=== PATIENT | male | born 1970 | race African-American/Black ===

== ENCOUNTER 2016-04-14 10:45 | Inpatient (IN) | payer MEDICARE, OTHER ==
--- NOTE | ~2016-04-14 | DS ---
Unit #: [id number] #: [id number] Patient: GUSTABO BREWER [id number] [facility] [address] [place] [address] [id number] I MR#: [id number] NAME: GUSTABO BREWER. ROOM: P259 Age: 45 Sex: M Admission Date: 04/14/2016 : 1970 Discharge Date: 04/19/2016 Attending Physician: Lluvia Ruiz M.D. DISCHARGE SUMMARY IDENTIFYING DATA Mr. Brewer is a 45-year-old male, who is known to us from previous encounter and was self-referred to the hospital. DISCHARGE DIAGNOSES Psychiatric: Major depressive disorder, recurrent, moderate, with psychosis. Medical: Hypertension. Stressors: Moderate psychosocial stressors. HISTORY OF PRESENT ILLNESS Please see initial psychiatric evaluation for details. PAST PSYCHIATRIC HISTORY Please see initial psychiatric evaluation for details. PAST MEDICAL HISTORY Please see initial psychiatric evaluation for details. HOSPITAL COURSE The patient was admitted to the adult psychiatric unit at [facility] and was oriented to the hospital environment. Routine p.r.n. medications were initiated, and he was started back on his home medications and the medications were adjusted and he was closely monitored. He was taking the medications regularly and was able to show a fairly decent therapeutic response and as such, it was decided that he will be discharged home and will continue treatment on an outpatient basis. DISCHARGE MEDICATIONS None. DISCHARGE CONDITION Stable. PROGNOSIS Fair. Dictated by... Lluvia Ruiz M.D. IAA/leol TD: 05/27/2016 13:46 Unit #: [id number] #: [id number] Patient: GUSTABO BREWER JOB #: [id number] DISCHARGE SUMMARY Page 1 of 1 X Lluvia Ruiz MD X DISCHARGE SUMMARY
--- NOTE | ~2016-04-14 | HP ---
Unit #: [id number] #: [id number] Patient: GUSTABO ZAMUDIO [id number] [place] [address] [id number] MR#: [id number] NAME: GUSTABO ZAMUDIO. ROOM: P255 Age: 45 Sex: M Admission Date: 04/14/2016 : 1970 Attending Physician: Lluvia Ruiz M.D. Admitting Physician: Lluvia Ruiz M.D. Primary Care Physician: Generic Doctor Not In System HISTORY AND PHYSICAL Gustabo is a 45 year old [facility] verbalizing wanting to hurt himself. He has had numerous admissions to this facility for treatment of the same. Patient was seen and H and P dated 03/27/16 was reviewed. This is current. No changes. Please see H and P dated 03/27/16. Dictated by... Stanislav VicenteAFaustino. for Prashant Corral/stella TD: 04/14/2016 20:40 JOB #: [id number] HISTORY AND PHYSICAL X Leola Devlin HISTORY AND PHYSICAL
--- NOTE | ~2016-04-14 | PN ---
Unit #: [id number] #: [id number] Patient: GUSTABO BREWER [id number] [facility] [address] [place] [address] [id number] I MR#: [id number] NAME: GUSTABO BREWER. ROOM: P259 Age: 45 Sex: M Admission Date: 04/14/2016 : 1970 Attending Physician: Lluvia Ruiz M.D. Admitting Physician: Lluvia Ruiz M.D. Primary Care Physician: Jacqueline Doctor Not In System [facility] PROGRESS NOTES DATE OF SERVICE: 04/18/2016 SUBJECTIVE Mr. Brewer is a 45-year-old male who was seen today and chart was reviewed, and case was discussed with the staff. He has been anxious, withdrawn, though has not shown any agitation or irritability and behavioral problems, and has been cooperative treatment recommendations and has been taking medications and tolerating them fairly well with no reported side effects. MENTAL STATUS EXAMINATION Middle-aged male who was casually dressed with fair personal hygiene, appears to be in no acute distress or discomfort. He was awake and alert on interaction with intact orientation. His mood was anxious with a congruent affect. His speech was slow and goal directed. He denies any suicidal or homicidal ideations. His insight and judgment remain slightly impaired. TREATMENT PLAN 1. We will continue him on his current medications and treatment protocol. We will monitor his response to medications and make further adjustments as needed. 2. We will continue to follow up. Dictated by... Prashant Huang/teodora TD: 04/19/2016 01:25 JOB #: [id number] [facility] PROGRESS NOTES X Lluvia Ruiz MD PROGRESS NOTE
--- NOTE | ~2016-04-14 | PN ---
Unit #: [id number] #: [id number] Patient: GUSTABO BREWRE [id number] [facility] [address] [place] [address] [id number] I MR#: [id number] NAME: GUSTABO BREWER. ROOM: P259 Age: 45 Sex: M Admission Date: 04/14/2016 : 1970 Attending Physician: Lluvia Ruiz M.D. Admitting Physician: Lluvia Ruiz M.D. Primary Care Physician: Jacqueline Doctor Not In System [facility] PROGRESS NOTES DATE 04/17/2016 DISCUSSION Mr. Brewer is a 45-year-old, male who was seen today and chart was reviewed and case was discussed with the staff. He has been anxious, withdrawn though has not shown any agitation, irritability or behavioral problems and has been cooperative with treatment recommendations. He has taking medication and tolerating them fairly well no report side effects. MENTAL STATUS EXAM Middle-age Young white male who was casually dressed with fair personal hygiene, appears to be in no acute distress or discomfort. He was awake and alert on interaction with intact orientation. His mood was anxious with congruent affect. He denies any suicidal or homicidal ideation. Also, denies any auditory or visual hallucinations. His insight and judgement remains slightly impaired. TREATMENT PLAN 1. We will continue him on his current treatment protocol. We will monitor his response and make further adjustments as needed. 2. We will continue to follow up. Dictated by... Prashant Huang/erica TD: 04/19/2016 04:09 JOB #: [id number] Unit #: [id number] #: [id number] Patient: GUSTABO BREWER [facility] PROGRESS NOTES X Lluvia Ruiz MD PROGRESS NOTE
--- NOTE | ~2016-04-14 | PN ---
Unit #: [id number] #: [id number] Patient: GUSTABO BREWER [id number] [facility] [address] [place] [address] [id number] I MR#: [id number] NAME: GUSTABO BREWER. ROOM: P259 Age: 45 Sex: M Admission Date: 04/14/2016 : 1970 Attending Physician: Lluvia Ruiz M.D. Admitting Physician: Lluvia Ruiz M.D. Primary Care Physician: Jacqueline Doctor Not In System [facility] PROGRESS NOTES DATE 04/16/2016 DISCUSSION Mr. Brewer is a 45-year-old, male who was seen today and chart was reviewed and case was discussed with the staff. He was pacing the hallways and reports not feeling good and that he is still hearing voices and the voices are bothering him even though Geodon has been added to Seroquel and both the medications are but the plan is to taking him off of Seroquel and titrating him up on Geodon. MENTAL STATUS EXAM Middle-aged male who was casually dressed with fair personal hygiene, appears to be in no acute distress or discomfort. He was awake and alert with impaired attention and concentration. His mood was anxious with congruent affect. His speech was slow and restricted in content. He reports having suicidal ideations and auditory hallucinations. His insight and judgement remains significantly impaired. TREATMENT PLAN 1. We will continue him on his current medications and treatment protocol. We will monitor his response to the medication and make further adjustments as needed. 2. We will continue to follow up. Dictated by... Prashant Huang/erica TD: 04/18/2016 20:44 JOB #: [id number] Unit #: [id number] #: [id number] Patient: GUSTABO BREWER [facility] PROGRESS NOT[facility] X Lluvia Ruiz MD PROGRESS NOTE
--- NOTE | ~2016-04-14 | TN ---
Unit #: [id number] #: [id number] Patient: [facility] [id number] [facility] [address] [place] [address] [id number] I MR#: [id number] NAME: GUSTABO BREWER. ROOM: P255 Age: 45 Sex: M Admission Date: 04/14/2016 : 1970 Discharge Date: Attending Physician: Lluvia Ruiz M.D. Primary Care Physician: Generic Doctor Not In System LOC TRANSFER NOTE DATE OF SERVICE: 04/14/2016 IDENTIFYING DATA Mr. Brewer is a 45-year-old single disabled male with a long history of mood disorder, who is a resident of [place], [place] and was stepped up to the inpatient unit from the intensive outpatient treatment program on a voluntary status. CHIEF COMPLAINT "I'm depressed and I'm having suicidal thoughts. I'm hearing voices telling me to play in traffic." HISTORY OF PRESENT ILLNESS Mr. Brewer is a 45-year-old male who was recently discharged from my care upon his own request after he received rounds of electroconvulsive therapy due to persistent and chronic depression and psychosis. However, he was stepped down to the outpatient treatment program. It is reported that he is not doing better and he has been decompensating and reported persistent depression and psychosis, and despite taking medications on a regular basis and being on a combination of psychotropic medication, he reports that he has not been able to feel the benefit and was feeling frustrated and disappointed and hopeless, stating nothing is helping. He does not know what else to do and was feeling that want to be out, just hurt himself and also was voicing some active command auditory hallucinations and was failing the outpatient treatment program and as such, recommendation for inpatient level of care was made and the patient was stepped up to the inpatient unit. 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 PAST PSYCHIATRIC HISTORY The patient has had a [facility] other [facility], and has been diagnosed and treated for mood disorder and psychosis and is currently on a combination of psychotropic medications. PAST MEDICAL HISTORY Significant for hypertension, asthma, status post cerebrovascular accident. PERSONAL AND SOCIAL HISTORY A 45-year-old male who reports that he is single, Unit #: [id number] #: [id number] Patient: GUSTABO BREWER A disabled, and lives at home with his mother and has fairly decent social support system. MENTAL STATUS EXAMINATION Middle-aged male who was casually dressed with a fair personal hygiene and appears to be in no acute distress or discomfort. He was awake and alert on interaction with intact orientation to time, place, and person. His mood was anxious and depressed with a congruent affect. His speech is slow and goal directed. He reports having suicidal ideations and command auditory hallucinations. His insight and judgment remain significantly impaired. DIAGNOSTIC IMPRESSION Psychiatric: Major depressive disorder, recurrent, moderate, with psychosis. Medical: Hypertension. Stressors: Moderate psychosocial stressors. TREATMENT PLAN 1. The patient has presented with a history of mood disorder and psychosis and has been decompensating and will need inpatient hospitalization for safety and stabilization. We will start him back on his home medications. We will adjust the medications and monitor response. 2. Supportive therapy was provided to the patient. 3. Safe, structured, and nourishing environment will be provided. ESTIMATED LENGTH OF STAY 5 to 7 days. ABILITY TO HELP SELF Limited. WILLINGNESS TO HELP SELF The patient appears to be willing to help self. STRENGTHS 1. Communicative. 2. Cooperative. PROBLEMS 1. Chronic dysphoric symptoms. 2. Poor social support system. DISCHARGE CRITERIA This will be contingent upon the patient's ability to show resolution of his depression and psychosis as well as his ability to stay safe to himself, particularly after discharge from the hospital. Dictated by... Prashant Huang/teodora TD: 04/15/2016 07:27 JOB #: [id number] Unit #: [id number] #: [id number] Patient: GUSTABO BREWER LOC TRANSFER NOTE X Lluvia Ruiz MD X LOC TRANSFER NOTE
--- NOTE | ~2016-04-14 | PN ---
Unit #: [id number] #: [id number] Patient: GUSTABO BREWER [id number] [facility] [address] [place] [address] [id number] I MR#: [id number] NAME: GUSTABO BREWER. ROOM: P259 Age: 45 Sex: M Admission Date: 04/14/2016 : 1970 Attending Physician: Lluvia Ruiz M.D. Admitting Physician: Lluvia Ruiz M.D. Primary Care Physician: Jacqueline Doctor Not In System [facility] PROGRESS NOTES DATE OF SERVICE 04/19/2016 DISCUSSION Mr. Brewer is a 45-year-old male who was seen today. Chart was reviewed and case was discussed with the staff. He has been anxious, withdrawn, depressed, and rather seclusive to himself. Meanwhile, he has been cooperative with the treatment recommendations and has been taking the medications and tolerating them fairly well with no reported side effects. MENTAL STATUS EXAMINATION Middle-aged male who is casually dressed with fair personal hygiene, appears to be in no acute distress or discomfort. He was awake and alert on interaction with intact orientation. His mood is anxious with congruent affect. He denies any suicidal or homicidal ideations. His insight and judgment remain slightly impaired. TREATMENT PLAN 1. We will continue him on his current medications and treatment protocol. We will monitor his response to the medications and make further adjustments as needed. 2. We will continue to follow up. Dictated by... Lluvia Ruiz M.D. IAA/yaryg TD: 04/20/2016 11:59 JOB #: [id number] [facility] PROGRESS NOTES X Lluvia Ruiz MD PROGRESS NOTE
--- NOTE | ~2016-04-14 | PN ---
Unit #: [id number] #: [id number] Patient: GUSTABO BREWER [id number] [facility] [address] [place] [address] [id number] I MR#: [id number] NAME: GUSTABO BREWER. ROOM: P255 Age: 45 Sex: M Admission Date: 04/14/2016 : 1970 Attending Physician: Lluvia Ruiz M.D. Admitting Physician: Lluvia Ruiz M.D. Primary Care Physician: Jacqueline Doctor Not In System [facility] PROGRESS NOTES DATE 04/15/2016 DISCUSSION Mr. Brewer is a 45-year-old male who was seen today and chart was reviewed and case was discussed with the staff. He has been anxious, withdrawn though has not shown any agitation, irritability and has been cooperative with treatment recommendations as he has been taking medications and tolerating them fairly well with no reported side effects. MENTAL STATUS EXAMINATION Middle-aged male who was casually dressed with fair personal hygiene and appears to be in no acute distress or discomfort. He was awake and alert on interaction with intact orientation. His mood was anxious and depressed with congruent affect. He denies any suicidal or homicidal ideations and does report auditory and visual hallucinations. His insight and judgement remains significantly impaired. TREATMENT PLAN 1. Will continue on his current medications and treatment protocol. Will monitor his response to the medications and make further adjustments as needed. 2. Will continue to follow up. Dictated by... Prashant Huang/stella TD: 04/15/2016 17:57 JOB #: [id number] Unit #: [id number] #: [id number] Patient: GUSTABO BREWER [facility] PROGRESS NOTES X Lluvia Ruiz MD PROGRESS NOTE
--- NOTE | ~2016-04-14 | DS ---
Unit #: [id number] #: [id number] [facility] [id number] [facility] [address] [place] [address] [id number] MR#: [id number] NAME: GUSTABO BREWER. ROOM: P259 Age: 45 Sex: M Admission Date: 04/14/2016 : 1970 Discharge Date: 04/19/2016 Attending Physician: Lluvia Ruiz M.D. DISCHARGE SUMMARY IDENTIFYING DATA Mr. Brewer is a 45-year-old male who is known to us from previous encounter, was recently discharged from my care and was self-referred back to the hospital. DISCHARGE DIAGNOSES Psychiatric: Bipolar disorder, most recent episode depressed, recurrent, moderate, with psychosis. Medical: Hypertension. Stressors: Moderate psychosocial stressors. HISTORY OF PRESENT ILLNESS Please see initial psychiatric evaluation for details. PAST PSYCHIATRIC HISTORY Please see initial psychiatric evaluation for details. PAST MEDICAL HISTORY Please see initial psychiatric evaluation for details. HOSPITAL COURSE The patient was admitted to the adult psychiatric unit at [facility] and was oriented to the hospital environment. Routine p.r.n. medications were initiated and he was started back on his home medications. We will closely monitor. He was anxious, restless, withdrawn, depressed, however, he was having some medical complications and was seeing in medical consultation for heart rate and has history of CVA in the past and recommendation of the patient was sent to the emergency room was made and probably discharged from our care. DISCHARGE CONDITION Stable. PROGNOSIS Guarded. Dictated by... Prashant Huang/teodora TD: 05/31/2016 12:21 Unit #: [id number] #: [id number] Patient: GUSTABO BREWER JOB #: [id number] DISCHARGE SUMMARY Page 1 of 1 X Lluvia Ruiz MD X DISCHARGE SUMMARY
[~2016-04-14 10:45] MED LIST: ACETAMINOPHEN PO; ACETAMINOPHEN325 MG PO; AL-MAG HYDROX-S30 M1 PO; ALBUTEROL17 GM INH; AMLODIPINE BESYL5 MG PO; ASPIRIN81 M2 PO; ATENOLOL50 MG PO; B-1100 MG PO; BALANCED B-501 CAP PO; CEPACOL SORE TH1 LOZ PO; CITRATE OF MAG296 M1 PO; CITRATE OF MAG296 ML PO; CLONIDINE HCL0.1 MG PO; COGENTIN PO; DARVOCET-N 1001 TAB PO; DESYREL100 MG PO; DESYREL50 MG PO; DOK100 MG PO; DOXEPIN HCL50 MG PO; FOLIC ACID1 MG PO; HYDROCHLOROTHIA25 MG PO; IBUPROFEN PO; MAALOX SUSPENSI30 ML PO; MILK OF MAGNESIA PO; MINIPRESS PO; MINIPRESS1 MG PO; MOTRIN600 M1 PO; NICOTINE1 EAC1 TD; NORVASC PO; PHENOL-SODIUM180 M1; PROLIXIN10 MG PO; PROTONIX PO; QUETIAPINE FUM200 MG PO; SAPHRIS2.5 MG PO; SAPHRIS2.5 MG SL; SEROQUEL PO; SEROQUEL XR200 MG; SEROQUEL XR300 M1 PO; SEROQUEL50 M1 PO; SERTRALINE HCL100 M1 PO; SYMBICORT 160/4.6 G1 INH; THERAPEUTIC-M1 EAC2 PO; THORAZINE PO; THORAZINE100 MG PO; THORAZINE50 MG PO; VENLAFAXINE HC150 M1 PO; ZESTRIL5 MG PO
== END 2016-04-19 18:30 | disposition left against medical advice (07) | DRG 885 ==
LOC: P2L 10:45
DX: F33.1 Major depressive disorder, recurrent, moderate (principal); F29 Unspecified psychosis not due to a substance or known physiological condition; I10 Essential (primary) hypertension
CPT/HCPCS: 90853

== ENCOUNTER 2016-04-23 06:04 | Inpatient (IN) | payer MEDICARE, OTHER ==
--- NOTE | ~2016-04-23 | PN ---
Unit #: [id number] #: [id number] Patient: GUSTABO BREWER [id number] [facility] [address] [place] [address] [id number] I MR#: [id number] NAME: GUSTABO BREWER. ROOM: P264 Age: 45 Sex: M Admission Date: 04/23/2016 : 1970 Attending Physician: Lluvia Ruiz M.D. Admitting Physician: Lluvia Ruiz M.D. Primary Care Physician: Primary Care Physician Hillary WEATHERS PROGRESS NOTES DATE 04/30/2016 DISCUSSION Mr. Brewer is a 45-year-old, male who was seen today and chart was reviewed and case was discussed with the staff. He has been anxious, withdrawn and seclusive to himself. He reports persistent depressive symptoms. Meanwhile, he has been taking the medication and tolerating them fairly well with no reported side effects. MENTAL STATUS EXAM Middle-aged male who was casually dressed with fair personal hygiene, appears to be in no acute distress or discomfort. He was awake and alert on interaction with intact orientation. His mood was anxious and depressed with congruent affect. His speech was slow and goal directed. He denies any suicidal or homicidal ideation. Also, denies any auditory or visual hallucinations. His insight and judgement remains slightly impaired. TREATMENT PLAN 1. We will continue him on his current medications and treatment protocol. We will monitor his response and make further adjustments as needed. 2. We will continue to follow up. Dictated by... Prashant Huang/erica TD: 05/02/2016 03:55 JOB #: [id number] Unit #: [id number] #: [id number] Patient: GUSTABO BREWER SARAHY PROGRESS NOTES X Lluvia Ruiz MD PROGRESS NOTE
--- NOTE | ~2016-04-23 | DS ---
Unit #: [id number] #: [id number] Patient: GUSTABO BREWER [id number] [facility] [address] [place] [address] [id number] MR#: [id number] NAME: GUSTABO BREWER. ROOM: P266 Age: 45 Sex: M Admission Date: 04/23/2016 : 1970 Discharge Date: 05/05/2016 Attending Physician: Lluvia Ruiz M.D. Primary Care Physician: Primary Care Physician No DISCHARGE SUMMARY IDENTIFYING DATA Mr. Brewer is a 45-year-old single disabled male, who is a resident of [place], [place], and was recently discharged from our care and brought himself back to the hospital as a transfer from [facility]. DISCHARGE DIAGNOSES Psychiatric: Bipolar disorder, most recent episode depressed, recurrent, moderate, with psychosis. Medical: Hypertension. Stressors: Moderate psychosocial stressors. HISTORY OF PRESENT ILLNESS Please see initial psychiatric evaluation for details. PAST PSYCHIATRIC HISTORY Please see initial psychiatric evaluation for details. PAST MEDICAL HISTORY Please see initial psychiatric evaluation for details. HOSPITAL COURSE The patient was admitted to the adult psychiatric unit at [facility] and was oriented to the hospital environment. Routine p.r.n. medications were initiated, and he was started back on his home medications. However, he was complaining of persistent psychosis despite being on Seroquel and as such, it was decided that he will be considered a candidate for combination antipsychotic as he has failed and tried several other antidepressant therapy in alone and Geodon was added into his Seroquel at 60 mg and later had to be increased to 120 as the patient was still exhibiting some acute psychosis and he was able to do much better on the combination antipsychotic, which was maintained and it was decided that he will be referred to a long-term residential level of care and will be discharged home. We will continue treatment on an outpatient basis. DISCHARGE MEDICATIONS Seroquel 400 mg at bedtime for psychosis, Geodon 120 mg at bedtime for psychosis, Zoloft 100 mg a day for depression, Norvasc 5 mg at bedtime for hypertension, clonidine 0.1 mg every 6 hours as needed for hypertension, and Zestril 10 mg in the morning for hypertension. DISCHARGE CONDITION Stable. Unit #: [id number] #: [id number] Patient: GUSTABO BREWER PROGNOSIS Fair. Dictated by... Prashant Huang/teodora TD: 05/05/2016 20:24 JOB #: [id number] DISCHARGE SUMMARY X Lluvia Ruiz MD DISCHARGE SUMMARY
--- NOTE | ~2016-04-23 | PN ---
Unit #: [id number] #: [id number] Patient: GUSTABO BREWER [id number] [facility] [address] [place] [address] [id number] MR#: [id number] NAME: GUSTABO BREWER. ROOM: P264 Age: 45 Sex: M Admission Date: 04/23/2016 : 1970 Attending Physician: Lluvia Ruiz M.D. Admitting Physician: Lluvia Ruiz M.D. Primary Care Physician: Primary Care Physician Hillary KINNEY NOTES DATE OF SERVICE: 04/25/2016 SUBJECTIVE Mr. Brewer is a 45-year-old male, who was seen today and chart was reviewed and the case was discussed with the staff. He has been anxious, withdrawn, and rather seclusive to himself. Meanwhile, he has been cooperative with the treatment recommendations and has been taking the medications and tolerating them fairly well with no reported side effects. MENTAL STATUS EXAMINATION Middle-aged male, who was casually dressed with a fair personal hygiene, appears to be in no acute distress or discomfort. He was awake and alert on interaction with intact orientation. His mood was anxious with a congruent affect. He reports having suicidal ideations as well as auditory hallucinations. His insight and judgment remain slightly impaired. TREATMENT PLAN 1. We will continue him on his current medications and treatment protocol. We will monitor his response to the medications and make further adjustments as needed. 2. We will continue to follow up. Dictated by... Prashant Huang/teodora TD: 04/27/2016 12:37 JOB #: [id number] [facility] PROGRESS NOTES X Lluvia Ruiz MD PROGRESS NOTE
--- NOTE | ~2016-04-23 | HP ---
Unit #: [id number] #: [id number] Patient: GUSTABO ZAMUDIO [id number] [place] [address] [id number] MR#: [id number] NAME: GUSTABO ZAMUDIO. ROOM: P264 Age: 45 Sex: M Admission Date: 04/23/2016 : 1970 Attending Physician: Lluvia Ruiz M.D. Admitting Physician: Lluvia Ruiz M.D. Primary Care Physician: Primary Care Physician No HISTORY AND PHYSICAL HISTORY OF PRESENT ILLNESS The patient is a 45-year-old male admitted on 2 [facility] on 04/23/2016 for suicidal ideations. The patient had a recent admission on 03/26/2016 where a complete history and physical was done. That history and physical has been reviewed, no changes need to be made. Dictated by... Jacklyn Austin/erica TD: 04/24/2016 22:26 JOB #: [id number] HISTORY AND PHYSICAL X HOLLI TINAJERO APRN X HISTORY AND PHYSICAL
--- NOTE | ~2016-04-23 | PN ---
Unit #: [id number] #: [id number] Patient: GUSTABO BREWER [id number] [facility] [address] [place] [address] [id number] I MR#: [id number] NAME: GUSTABO BREWER. ROOM: [facility] Age: 45 Sex: M Admission Date: 04/23/2016 : 1970 Attending Physician: Lluvia Ruiz M.D. Admitting Physician: Lluvia Ruiz M.D. Primary Care Physician: Primary Care Physician Hillary WEATHERS PROGRESS NOTES DATE May 02, 2016 DISCUSSION Mr. Brewer is a 45-year-old male, who was seen today and chart was reviewed and the case was discussed with the staff. He has been anxious, withdrawn, and has been complaining of persistent depressive symptoms. Meanwhile, he has been taking the medications and tolerating them fairly well with no reported side effects. MENTAL STATUS EXAMINATION Middle-aged male, who was casually dressed with fair personal hygiene and appears to be in no acute distress or discomfort. He was awake and alert on interaction with intact orientation. His mood is anxious with a congruent affect. He reports having suicidal ideations and auditory hallucinations. His insight and judgment remain slightly impaired. TREATMENT PLAN 1. We will continue him on his current medications and treatment protocol, and will monitor his response to the medications, and make further adjustments as needed. 2. We will continue to followup. Dictated by... Prashant Huang/jesus TD: 05/03/2016 10:20 JOB #: [id number] Unit #: [id number] #: [id number] Patient: GUSTABO BREWER SARAHY PROGRESS NOTES X Lluvia Ruiz MD PROGRESS NOTE
--- NOTE | ~2016-04-23 | PN ---
Unit #: [id number] #: [id number] Patient: GUSTABO BREWER [id number] [facility] [address] [place] [address] [id number] I MR#: [id number] NAME: GUSTABO BREWER. ROOM: P266 Age: 45 Sex: M Admission Date: 04/23/2016 : 1970 Attending Physician: Lluvia Ruiz M.D. Admitting Physician: Lluvia Ruiz M.D. Primary Care Physician: Primary Care Physician Hillary KINNEY NOTES DATE OF SERVICE 05/04/2016 DISCUSSION Mr. Brewer is a 45-year-old female who was seen today. Chart was reviewed and case was discussed with the staff who informed me that social work instructor had made referrals to group homes. The patient stated that he wants to go to a jail. Meanwhile, he has been bringing up lot of symptoms with very strong suspicion he has been faking it as during the daytime he was noted to be flirting with female patients and smiling and happy, but when I tried to interact with him, he all of a sudden changes his demeanor and attitude stating that he is not doing good, and he is depressed, still having hallucinations, and he still wants more time and has been in the hospital pretty much every month and has spent less time out of the hospital than in the hospital, and therefore boundary setting was done, and he was told that his present jail will not be able to keep him here until the opening becomes available because he is going to complete his month and that he would need to go to some place in between and need to follow up with his outpatient provider (1) __ strongly consider and encourage discharge planning for tomorrow meanwhile pushing things (2) __. Dictated by... Lluvia Ruiz M.D. IAA/bzg TD: 05/05/2016 06:55 JOB #: [id number] SARAHY PROGRESS NOTES X Lluvia Ruiz MD PROGRESS NOTE
--- NOTE | ~2016-04-23 | PN ---
Unit #: [id number] #: [id number] Patient: GUSTABO BREWER [id number] [facility] [address] [place] [address] [id number] MR#: [id number] NAME: GUSTABO BREWER. ROOM: 66 Age: 45 Sex: M Admission Date: 04/23/2016 : 1970 Attending Physician: Lluvia Ruiz M.D. Admitting Physician: Lluvia Ruiz M.D. Primary Care Physician: Primary Care Physician Hillary KINNEY NOTES DATE OF SERVICE: 05/03/2016 SUBJECTIVE Mr. Brewer is a 45-year-old male who was seen today and chart was reviewed and case was discussed with the staff. He has been anxious, withdrawn, and rather seclusive to himself. Meanwhile, he has been cooperative with treatment recommendations and has been taking the medications and tolerating them fairly well with no reported side effects. MENTAL STATUS EXAMINATION Middle-aged male who was casually dressed with fair personal hygiene, appears to be in no acute distress or discomfort. He was awake and alert on interaction with intact orientation. His mood was anxious with a congruent affect. He denies any suicidal or homicidal ideations, but he does report auditory hallucinations. His insight and judgment remain slightly impaired. TREATMENT AND PLAN 1. We will continue him on his current medications and treatment protocol. We will monitor his response to the medications and make further adjustments as needed. 2. We will continue to follow up. Dictated by... Prashant Huang/teodora TD: 05/04/2016 15:41 JOB #: [id number] [facility] PROGRESS NOTES X Lluvia Ruiz MD PROGRESS NOTE
--- NOTE | ~2016-04-23 | CO ---
Unit #: [id number] #: [id number] Patient: GUSTABO ZAMUDIO [id number] [place] [address] [id number] I MR#: [id number] NAME: GUSTABO ZAMUDIO. ROOM: P264 Age: 45 Sex: M Admission Date: 04/23/2016 : 1970 Attending Physician: Lluvia Ruiz M.D. Primary Care Physician: Primary Care Physician No Consultation Date: 05/01/2016 CONSULTATION REPORT HISTORY OF PRESENT ILLNESS Gustabo has a history of hypertension. He had been taking Norvasc 5 mg and lisinopril 5 mg p.o. daily at home, however, his blood pressures remained elevated. His lisinopril was changed to 10 mg p.o. daily yesterday and he was started on p.r.n. clonidine 0.1 mg. This morning, his blood pressure was 98/70 and heart rate 77 and this afternoon, blood pressure was 112/80. He denies any chest pain, headache, or shortness of breath and has no other complaints. PHYSICAL EXAMINATION CARDIAC: Regular rate and rhythm. No murmur, gallop, or rub. RESPIRATORY: Clear to auscultation bilaterally. ASSESSMENT AND PLAN Hypertension. Today, his blood pressures do appear to be under control with current regimen. We will continue with this plan. Please notify if blood pressures are again elevated. Dictated by... Shalonda Duran A.P.R.N. for Prashant Corral/teodora TD: 05/01/2016 15:23 JOB #: [id number] CONSULTATION REPORT X SHALONDA PAULINO APRN X CONSULTATION REPORT
--- NOTE | ~2016-04-23 | PN ---
Unit #: [id number] #: [id number] Patient: GUSTABO BREWER [id number] [facility] [address] [place] [address] [id number] I MR#: [id number] NAME: GUSTABO BREWER. ROOM: P264 Age: 45 Sex: M Admission Date: 04/23/2016 : 1970 Attending Physician: Lluvia Ruiz M.D. Admitting Physician: Lluvia Ruiz M.D. Primary Care Physician: Primary Care Physician Hillary WEATHERS PROGRESS NOTES DATE 04/28/2016 DISCUSSION Mr. Brewer is a 45-year-old male who was seen today and chart was reviewed and case was discussed with the staff. He reports still having depression, anxiety and hallucinations. He has been taking medications and states "I'm trying." MENTAL STATUS EXAMINATION Middle-aged male who was casually dressed with fair personal hygiene and appears to be in no acute distress or discomfort. He was awake and alert on interaction with intact orientation. His mood was anxious and depressed with congruent affect. His speech is slow and goal-directed. He reports having suicidal ideations as well as auditory hallucinations. His insight and judgement remains slightly impaired. TREATMENT PLAN 1. Will continue on his current medications and treatment protocol. Will monitor his response to the medications and make further adjustments as needed. 2. Will continue to follow up. Dictated by... Lluvia Ruiz M.D. IAA/stella TD: 04/29/2016 16:50 JOB #: [id number] Unit #: [id number] #: [id number] Patient: GUSTABO BREWER HEYDIRAEANN PROGRESS NOTES X Lluvia Ruiz MD PROGRESS NOTE
--- NOTE | ~2016-04-23 | PN ---
Unit #: [id number] #: [id number] Patient: GUSTABO BREWER [id number] [facility] [address] [place] [address] [id number] MR#: [id number] NAME: GUSTABO BREWER. ROOM: 66 Age: 45 Sex: M Admission Date: 04/23/2016 : 1970 Attending Physician: Lluvia Ruiz M.D. Admitting Physician: Lluvia Ruiz M.D. Primary Care Physician: Primary Care Physician Hillary WEATHERS PROGRESS NOTES DATE OF SERVICE: 05/01/2016 SUBJECTIVE Mr. Brewer is a 45-year-old male who was seen today and chart was reviewed and case was discussed with the staff. He has been anxious, withdrawn, and rather seclusive to himself. Meanwhile, he has been cooperative with treatment recommendations and has been taking the medications and tolerating them fairly well with no reported side effects. MENTAL STATUS EXAMINATION Middle-aged male who was casually dressed with fair personal hygiene, appears to be in no acute distress or discomfort. He was awake and alert on interaction with intact orientation. His mood was anxious with a congruent affect. He denies any suicidal or homicidal ideations. His insight and judgment remain slightly impaired. TREATMENT PLAN 1. We will continue him on his current medications and treatment protocol. We will monitor his response to the medications and make further adjustments as needed. 2. We will continue to follow up. Dictated by... Prashant Huang/teodora TD: 05/02/2016 13:57 JOB #: [id number] [facility] PROGRESS NOTES X Lluvia Ruiz MD PROGRESS NOTE
--- NOTE | ~2016-04-23 | PN ---
Unit #: [id number] #: [id number] Patient: GUSTABO BREWER [id number] [facility] [address] [place] [address] [id number] I MR#: [id number] NAME: GUSTABO BREWER. ROOM: P264 Age: 45 Sex: M Admission Date: 04/23/2016 : 1970 Attending Physician: Lluvia Ruiz M.D. Admitting Physician: Lluvia Ruiz M.D. Primary Care Physician: Primary Care Physician No [facility] PROGRESS NOTES DATE OF SERVICE: 04/29/2016 SUBJECTIVE Mr. Brewer is a 45-year-old male with mood disorder and psychosis, who was seen today and chart was reviewed and the case was discussed with the staff. He has been anxious, depressed, and pacing the hallways and stating that he is trying to get better and that he is not feeling much better and that he still has been having hallucinations and suicidal ideation, though he has been on combination antipsychotic. Meanwhile, he also reports that he is trying to get into a long-term placement outside of the hospital and I consider that to be the reason he keeps coming back to the hospital. MENTAL STATUS EXAMINATION Middle-aged male, who was casually dressed with fair personal hygiene, appears to be in no acute distress or discomfort. He was awake and alert on interaction with intact orientation. His mood was anxious with a congruent affect. His speech was slow and goal directed. He denies any suicidal or homicidal ideations. His insight and judgment remain slightly impaired. TREATMENT PLAN 1. We will continue him on his current medications and treatment protocol. We will monitor his response and make further adjustments as needed. 2. We will continue to follow up. Dictated by... Prashant Huang/teodora TD: 04/29/2016 14:40 JOB #: [id number] Unit #: [id number] #: [id number] Patient: GUSTABO BREWER [facility] PROGRESS NOTES X JosephLluvia Bauman MD X PROGRESS NOTE
--- NOTE | ~2016-04-23 | PA ---
Unit #: [id number] #: [id number] Patient: GUSTABO BREWER [id number] [facility] [address] [place] [address] [id number] I MR#: [id number] NAME: GUSTABO BREWER. ROOM: P264 Age: 45 Sex: M Admission Date: 04/23/2016 : 1970 Date of Assessment: 04/23/2016 Attending Physician: Lluvia Ruiz M.D. Admitting Physician: Lluvia Ruiz M.D. Primary Care Physician: Primary Care Physician No PSYCHIATRIC ASSESSMENT DATE OF SERVICE 04/23/2016. IDENTIFYING DATA Mr. Brewer is a 45-year-old, single, disabled, male, who is a resident of [place], [place], and was recently discharged from my care after he decided to leave against medical advice and now was transferred back to from [facility]. CHIEF COMPLAINT "I'm suicidal, I'm hearing voices." HISTORY OF PRESENT ILLNESS A 45-year-old single, disabled, male with history of mood disorder and psychosis, who was been a habitual offender when he comes to inpatient hospitalization and pretty much has been living in the hospital, as he comes out of the hospital, goes to the outpatient program, goes into the medical facility and then bring himself here. When he comes here, he wants to stay for a week and sometime a month at a time and constantly voicing suicidal thoughts and auditory hallucinations and wanting to have more and more and more medications and we have been getting uncomfortable with this amount of medication and he yet states that he is constantly hearing voices and when he comes to the hospital, he is usually found just eating and sleeping and hardly participating in any treatment-related activities or even interacting with peers and just want to take more and more medications and just sleep all the time; however, he was discharged against medical advice after he was wanting to have more medication and he was told on the phone by the nursing staffs who were in contact with me that that will be all the medication we will be able to offer at this time and he then decided that he wanted to just leave. He since then states that he got into a conversation and argument with his ex- who has not really been in the picture for sometime, but that it triggered his stress and therefore he got suicidal and went to the [facility] and reported having suicidal ideations and auditory hallucinations and was sent back here after it has been less than a week that he got out of the hospital. 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 PAST PSYCHIATRIC HISTORY The patient has had a history of inpatient psychiatric hospitalization multiple times at [facility] in addition to other facilities and Unit #: [id number] #: [id number] Patient: GUSTABO BREWER has been diagnosed and treated for mood disorder and psychosis and is currently on Seroquel, Zoloft, and Geodon and we are in the process of cross titrating Geodon with Seroquel. PAST MEDICAL HISTORY The patient's medical history is significant for hypertension. ALLERGIES Butyrophenones, Depakote, quinolones, Haldol, levofloxacin, lithium, and Risperdal. PERSONAL AND SOCIAL HISTORY A 45-year-old male, who reports that he is single, unemployed, disabled, and lives with his girlfriend and two sons and a daughter, so his living situation changes quite often. MENTAL STATUS EXAMINATION Middle-aged male, who was casually dressed with fair personal hygiene, appears to be in no acute distress or discomfort. He was awake and alert on interaction with intact orientation to time, place, and person. His mood was anxious with a congruent affect. His speech was slow and goal directed. He denies any suicidal or homicidal ideation and also denies any auditory or visual hallucinations. His insight and judgment remain significantly impaired. DIAGNOSTIC IMPRESSION Psychiatric: Bipolar disorder, most recent episode depressed, recurrent, moderate, with psychosis. Medical: Hypertension. Stressors: Moderate psychosocial stressors. TREATMENT PLAN 1. The patient has presented with a history of mood disorder and has been decompensating and will need inpatient hospitalization for safety and stabilization. We will start him back on his home medications and we will adjust the medications and monitor response. 2. Supportive therapy was provided to the patient. 3. Safe, structured, and nourishing environment will be provided. ESTIMATED LENGTH OF STAY 5 to 7 days. ABILITY TO HELP SELF Limited. WILLINGNESS TO HELP SELF The patient appears to be willing to help self. STRENGTHS 1. Communicative. 2. Cooperative. PROBLEMS 1. Chronic dysphoric symptoms. 2. Poor social support system. DISCHARGE CRITERIA This will be contingent upon the patient's ability to show resolution of his depression and anxiety and his ability to stay safe to himself, Unit #: [id number] #: [id number] Patient: GUSTABO BREWER particularly after discharge from the hospital. Dictated by... Prashant Huang/teodora TD: 04/23/2016 13:19 JOB #: [id number] PSYCHIATRIC ASSESSMENT X Lluvia Ruiz MD X PSYCHIATRIC ASSESSMENT
--- NOTE | ~2016-04-23 | PN ---
Unit #: [id number] #: [id number] Patient: GUSTABO BREWER [id number] [facility] [address] [place] [address] [id number] MR#: [id number] NAME: GUSTABO BREWER. ROOM: P264 Age: 45 Sex: M Admission Date: 04/23/2016 : 1970 Attending Physician: Lluvia Ruiz M.D. Admitting Physician: Lluvia Ruiz M.D. Primary Care Physician: Primary Care Physician Hillary WEATHERS PROGRESS NOTES DATE OF SERVICE: 04/26/2016 SUBJECTIVE Mr. Brewer is a 45-year-old male, who was seen today and chart was reviewed and the case was discussed with the staff. He has been anxious, withdrawn, and reports some persistent depression and suicidal thoughts and auditory hallucinations. Meanwhile, he has been taking the medications and tolerating them fairly well with no reported side effects. MENTAL STATUS EXAMINATION Middle-aged male, who was casually dressed with fair personal hygiene, appears to be in no acute distress or discomfort. He was awake and alert on interaction with intact orientation. His mood was anxious with a congruent affect. His speech was slow and goal directed. He denies any suicidal or homicidal ideations. His insight and judgment remain slightly impaired. TREATMENT PLAN 1. We will continue him on his current medications and treatment protocol. We will monitor his response to the medications and make further adjustments as needed. 2. We will continue to follow up. Dictated by... Prashant Huang/teodora TD: 04/28/2016 07:41 JOB #: [id number] [facility] PROGRESS NOTES X Lluvia Ruiz MD PROGRESS NOTE
--- NOTE | ~2016-04-23 | PN ---
Unit #: [id number] #: [id number] Patient: GUSTABO BREWER [id number] [facility] [address] [place] [address] [id number] I MR#: [id number] NAME: GUSTABO BREWER. ROOM: P264 Age: 45 Sex: M Admission Date: 04/23/2016 : 1970 Attending Physician: Lluvia Ruiz M.D. Admitting Physician: Lluvia Ruiz M.D. Primary Care Physician: Primary Care Physician Hillary WEATHERS PROGRESS NOTES DATE OF SERVICE: 04/24/2016 SUBJECTIVE Mr. Brewer is a 45-year-old male who was seen today and chart was reviewed, and case was discussed with the staff. He has been anxious, withdrawn, depressed, and facing the hallways, and wanting his room to be unlocked. Meanwhile, he has been compliant with treatment recommendation and has been taking the medications and tolerating them fairly well. MENTAL STATUS EXAMINATION Middle-aged male who was casually dressed with fair personal hygiene, appears to be in no acute distress or discomfort. He was awake and alert with intact orientation. His mood was anxious with a congruent affect. His speech was slow and goal directed. He denies any suicidal or homicidal ideation. His insight and judgment remain slightly impaired. TREATMENT PLAN 1. We will continue him on his current treatment protocol. We will monitor his response to medications and make further adjustments as needed. 2. We will continue to follow up. Dictated by... Prashant Huang/teodora TD: 04/26/2016 03:03 JOB #: [id number] [facility] PROGRESS NOTES X Lluvia Ruiz MD PROGRESS NOTE
--- NOTE | ~2016-04-23 | PN ---
Unit #: [id number] #: [id number] Patient: GUSTABO BREWER [id number] [facility] [address] [place] [address] [id number] MR#: [id number] NAME: GUSTABO BREWER. ROOM: P264 Age: 45 Sex: M Admission Date: 04/23/2016 : 1970 Attending Physician: Lluvia Ruiz M.D. Admitting Physician: Lluvia Ruiz M.D. Primary Care Physician: Primary Care Physician Hillary WEATHERS PROGRESS NOTES DATE April 27, 2016 DISCUSSION Mr. Brewer is a 45-year-old male, who was seen today and chart was reviewed and the case was discussed with the staff. He has been anxious, withdrawn, but has not shown any agitation, irritability, and has been cooperative with the treatment recommendations, and he has been taking the medications and tolerating them fairly well. MENTAL STATUS EXAMINATION Middle-aged male, who was casually dressed with fair personal hygiene and appears to be in no acute distress or discomfort. He was awake and alert on interaction with intact orientation. His mood is anxious with a congruent affect. He denies any suicidal or homicidal ideations. His insight and judgment remain slightly impaired. TREATMENT PLAN 1. We will continue him on his current medications and treatment protocol, and will monitor his response to the medications, and make further adjustments as needed. 2. We will continue to followup. Dictated by... Prashant Huang/jesus TD: 04/28/2016 13:10 JOB #: [id number] Unit #: [id number] #: [id number] Patient: GUSTABO BREWER SARAHY PROGRESS NOTES X Lluvia Ruiz MD PROGRESS NOTE
--- NOTE | ~2016-04-23 | EKG ---
PATIENT: GUSTABO ZAMUDIO UNIT #: [id number] Ventricular Rate: 75 BPM Atrial Rate: 75 BPM P-R Interval: 162 ms QRS Duration: 84 ms Q-T Interval: 374 ms QTC Calculation(Bezet): 417 ms P [place]: 55 degrees Calculated R [place]: 31 degrees Calculated T [place]: 37 degrees Diagnosis Line: Normal sinus rhythm Diagnosis Line: RSR' or QR pattern in V1 suggests right Diagnosis Line: ventricular conduction delay Diagnosis Line: Borderline ECG Diagnosis Line: When compared with ECG of 03-APR-2016 22:22, Diagnosis Line: RSR' pattern in V1 is now Present Diagnosis Line: Confirmed by VERONICA BLEVINS MD ([id number]) on Diagnosis Line: 05/02/2016 3:26:36 PM INTERPRETING MD: FELICITY RODRIGUES
== END 2016-05-05 11:40 | disposition home or self-care (01) | DRG 885 ==
LOC: P2L 06:04 → POF 04-29 15:26 → P2L 04-29 15:35
DX: F31.32 Bipolar disorder, current episode depressed, moderate (principal); I10 Essential (primary) hypertension; Z88.8 Allergy status to other drugs, medicaments and biological substances

== ENCOUNTER 2016-05-27 07:15 | Inpatient (IN) | payer OTHER, MEDICARE ==
--- NOTE | ~2016-05-27 | DS ---
Unit #: [id number] #: [id number] Patient: GUSTABO BREWER [id number] [facility] [address] [place] [address] [id number] I MR#: [id number] NAME: GUSTABO BREWER. ROOM: P264 Age: 45 Sex: M Admission Date: 05/27/2016 : 1970 Discharge Date: 05/30/2016 Attending Physician: Lluvia Ruiz M.D. Primary Care Physician: Primary Care Physician No DISCHARGE SUMMARY IDENTIFYING DATA Mr. Brewer is a 45-year-old male, who is very well known to us from previous multiple encounters with frequent and multiple inpatient psychiatric hospitalization and pretty much has been living in the hospital and was once again self-referred to the hospital. DISCHARGE DIAGNOSES Psychiatric: Bipolar disorder, most recent episode depressed, recurrent, moderate, with psychosis. Medical: Hypertension, history of cerebrovascular accident. Stressors: Moderate psychosocial stressors. HISTORY OF PRESENT ILLNESS Please see initial psychiatric evaluation for details. PAST PSYCHIATRIC HISTORY Please see initial psychiatric evaluation for details. PAST MEDICAL HISTORY Please see initial psychiatric evaluation for details. HOSPITAL COURSE The patient was admitted to the adult psychiatric unit at [facility] [place] and was oriented to the hospital environment. Routine p.r.n. medications were initiated and he was started back on his home medications and was closely monitored. He was taking the medications regularly and was tolerating them fairly well and was able to show a decent and therapeutic response and as such, it was decided that he will be discharged home and will continue treatment on outpatient treatment protocol. DISCHARGE MEDICATIONS Seroquel 400 mg at bedtime and 100 mg in the morning for psychosis, Zoloft 100 mg a day for depression, Norvasc 5 mg a day for hypertension, aspirin 81 mg a day for coronary artery disease, Zestril 10 mg a day for hypertension, Proventil inhaler 2 puffs every 4 hours as needed for asthma, Symbicort inhaler as needed for asthma, Geodon 120 mg in the evening for psychosis. DISCHARGE CONDITION Stable. PROGNOSIS Fair. Unit #: [id number] #: [id number] Patient: GUSTABO BREWER Dictated by... Lluvia Ruiz M.D. IAA/modl TD: 05/30/2016 07:09 JOB #: [id number] DISCHARGE SUMMARY Page 1 of 1 X Lluvia Ruiz MD DISCHARGE SUMMARY
--- NOTE | ~2016-05-27 | PA ---
Unit #: [id number] #: [id number] Patient: GUSTABO BREWER [id number] [facility] [address] [place] [address] [id number] I MR#: [id number] NAME: GUSTABO BREWER. ROOM: P264 Age: 45 Sex: M Admission Date: 05/27/2016 : 1970 Date of Assessment: Attending Physician: Lluvia Ruiz M.D. Admitting Physician: Lluvia Ruiz M.D. PSYCHIATRIC ASSESSMENT DATE OF SERVICE 05/27/2016. IDENTIFYING DATA Mr. Brewer is a 45-year-old single disabled white male with history of chronic mental illness, who is very well known to us from previous multiple encounters and is a resident of [place], [place], and was self-referred to the hospital on a voluntary basis. CHIEF COMPLAINT "Command hallucinations telling me to harm myself." HISTORY OF PRESENT ILLNESS Mr. Brewer is a 45-year-old male, who has been very well known to us from previous multiple encounters and has effectively become a hospital-dependent patient, who wants to live in the hospital and has been in the hospital for repeated duration of time and each time he comes into the hospital, he stays for an extended period of time and weeks and months and at times, also has been willing to get shock treatments just so he can stay in the hospital long and then as soon as he gets out of the hospital, he wants to come right back and does not follow up with outpatient treatment recommendations and he was refused by me the last couple of times as he kept coming back to the admissions and was encouraged and referred to the outpatient program, but he did not go there and rather went to the [facility] where he was again refused admission by me, but hospital assigned him to a different physician and was there for a long period of time and once again, he got out and now brought himself right back to the hospital once again having the same complaints stating that he was hearing voices telling him to harm himself and that he is suicidal and that he knows he is going to do it and yet he has never done it and he has no history of actually attempting suicide and has developed a malingering personality voicing suicidal thoughts and reports that he has been walking in and out of the traffic all day, even though there is no evidence of that at all. He once again has been refusing to take the medications and then he blames that the medications are not working for him and wants to be on an extensive regimen of medication, and once he is taking all of the medication, he just wants to sleep all day long and does not participate in any treatment-related activities when he is on the unit as he does not go to the group, does not socialize or interact, and just sleeps and eats and take his medications and then gets out of the hospital and wants to do it all over again. SUBSTANCE ABUSE HISTORY Unit #: [id number] #: [id number] Patient: GUSTABO BREWER The patient denies any history of alcohol or drug abuse. PAST PSYCHIATRIC HISTORY The patient has had a history of multiple inpatient psychiatric hospitalizations and has been living in the hospital as he has had more time in the hospital than out of the hospital unfortunately over the last several months, and once again, he is not active in any ongoing outpatient treatment program and is not seeing a psychiatrist outside of the hospital. PAST MEDICAL HISTORY Hypertension, history of stroke, and COPD. ALLERGIES Depakote, Levaquin, lithium, Risperdal, butyrophenones, and Haldol. PERSONAL AND SOCIAL HISTORY A 45-year-old male, who reports that he is disabled and lives at home with his girlfriend and his two sons and a daughter, but has not really been there for any duration of time. MENTAL STATUS EXAMINATION Middle-aged male, who was casually dressed with fair personal hygiene, appears to be in no acute distress or discomfort. He was awake and alert on interaction with intact orientation to time, place, and person. His mood was anxious and depressed with a congruent affect. His speech was slow and restricted in content. His thought processes were disorganized with some looseness of associations and suicidal ideations and auditory hallucinations. His insight and judgment remain significantly impaired. DIAGNOSTIC IMPRESSION Psychiatric: Bipolar disorder, most recent episode depressed, recurrent, moderate, with psychosis. Medical: History of stroke, chronic obstructive pulmonary disease, and hypertension. Stressors: Moderate psychosocial stressors. TREATMENT PLAN 1. The patient has presented with a history of mood disorder and psychosis and has been decompensating and will need inpatient hospitalization for safety and stabilization. We will start him back on his home medications and we will adjust the medications and monitor response. 2. Supportive therapy was provided to the patient. ESTIMATED LENGTH OF STAY 5 to 7 days. ABILITY TO HELP SELF Limited. WILLINGNESS TO HELP SELF The patient appears to be willing to help self. STRENGTHS 1. Communicative. 2. Cooperative. PROBLEMS Unit #: [id number] #: [id number] Patient: GUSTABO BREWER 1. Chronic dysphoric symptoms. 2. Poor social support system. DISCHARGE CRITERIA This will be contingent upon the patient's ability to show resolution of his depression and psychosis and his ability to stay safe to himself, particularly after discharge from the hospital. Dictated by... Lluvia Ruiz M.D. KARI/teodora TD: 05/28/2016 13:32 JOB #: [id number] PSYCHIATRIC ASSESSMENT Page 1 of 1 X Lluvia Ruiz MD X PSYCHIATRIC ASSESSMENT
--- NOTE | ~2016-05-27 | HP ---
Unit #: [id number] #: [id number] Patient: GUSTABO ZAMUDIO [id number] [place] [address] [id number] I MR#: [id number] NAME: GUSTABO ZAMUDIO. ROOM: P264 Age: 45 Sex: M Admission Date: 05/27/2016 : 1970 Attending Physician: Lluvia Ruiz M.D. Admitting Physician: Lluvia Ruiz M.D. Primary Care Physician: Primary Care Physician No HISTORY AND PHYSICAL HISTORY OF PRESENT ILLNESS Gustabo is a 45 year old admitted to [address] [place] [address] with depression and verbalizing wanting to hurt himself. PAST MEDICAL HISTORY 1. Long history of polysubstance abuse. 2. High blood pressure. 3. Diabetes mellitus. 4. Asthma. 5. Thoracic outlet syndrome by patient's report. 6. History of TIA x2 by the patient's report. 7. History of malingering. PAST SURGICAL HISTORY 1. Cholecystectomy. 2. Bowel resection. ALLERGIES Levaquin, lithium, Risperdal, and Haldol. SOCIAL HISTORY Smokes one pack per day. Drinks alcohol. Has a long history of illicit substance abuse to include cocaine and marijuana. FAMILY HISTORY Medically noncontributory. REVIEW OF SYSTEMS CONSTITUTIONAL: No fever or chills. HEENT: Denies any sore throat, ear pain or runny nose. CARDIOVASCULAR: Denies chest pain, irregular heart rhythm or palpitations. CHEST: Denies shortness of breath or cough. No hemoptysis. GASTROINTESTINAL: Denies nausea, vomiting, diarrhea or chronic constipation. ENDOCRINE: Denies history of increased thirst or urination. No recent significant weight loss or gain. GENITOURINARY: Denies dysuria, frequency, or hematuria. SKIN: Denies any rashes. HEMATOLOGIC: Denies history of increased bleeding or bruising. MUSCULOSKELETAL: Denies any hot, swollen joints. No generalized muscle pain. NEUROLOGIC: Denies problems with vision or speech. No frequent, severe headaches. No numbness, tingling or weakness in any extremities. Denies Unit #: [id number] #: [id number] Patient: GUSTABO ZAMUDIO loss of bladder or bowel control. CURRENT MEDICATIONS 1. Symbicort q.a.m. 2. Geodon 120 mg q.h.s. 3. Seroquel 100 mg q.a.m., 400 mg q.h.s. 4. Zoloft 100 mg q. day. 5. Norvasc 5 mg q. day. 6. Aspirin 81 mg q. day. 7. Zestril 10 mg q. day. 8. Proventil inhaler p.r.n. 9. Catapres 0.1 mg q. 6 hours p.r.n. 10. Milk of Magnesia p.r.n. 11. Maalox p.r.n. 12. Tylenol p.r.n. PHYSICAL EXAMINATION GENERAL: Alert, obese. No apparent distress. VITAL SIGNS: Blood pressure 148/96, heart rate 80, respirations 16, and temperature 98.6. WEIGHT: 220. HEIGHT: 5 feet 7 inches. SKIN: Warm and dry without rash or lesion. HEENT: Normocephalic. TMs not viewed. Oral and nasal passages clear. Conjunctivae clear. PERRLA. EOMs intact. NECK: Supple without lymphadenopathy or thyromegaly. HEART: Regular rate and rhythm without murmur. LUNGS: Clear. ABDOMEN: Soft, nontender. : Not done. EXTREMITIES: No evidence of cyanosis, clubbing or edema. Moves all without focal deficit. NEUROLOGICAL: Grossly within normal limits. Cranial Nerves: II: Visual go are intact. III, IV AND : Extraocular movements are intact. Pupils are equal, round and reactive to light. V: Facial sensation is grossly normal. VII: Facial movements and expression are normal. VIII: Auditory acuity grossly intact. IX, X: Uvula is midline. Phonation is normal. XI: Patient shrugs shoulders and turns head normally. XII: Tongue protrudes in the midline. Sensory and Motor Function: Sensory and motor sensation is grossly normal. Motor: moves all extremities well. Coordination: Gait is normal. Deep Tendon Reflexes: Intact. IMPRESSION Psychiatric admission. RECOMMENDATIONS PSYCHIATRIC: Per psychiatrist. MEDICAL: I see no contraindication to participate in this facility's activities. MEDICAL PROGNOSIS Good. MEDICAL CONDITION Stable. Unit #: [id number] #: [id number] Patient: GUSTABO ZAMUDIO Dictated by... Leola Devlin P.A.-C. for Prashant Corral/eloy TD: 05/28/2016 08:14 JOB #: [id number] HISTORY AND PHYSICAL Page 1 of 1 X Leola Devlin HISTORY AND PHYSICAL
--- NOTE | ~2016-05-27 | PN ---
Unit #: [id number] #: [id number] Patient: GUSTABO BREWER [id number] [facility] [address] [place] [address] [id number] I MR#: [id number] NAME: GUSTABO BREWER. ROOM: P264 Age: 45 Sex: M Admission Date: 05/27/2016 : 1970 Attending Physician: Lluvia Ruiz M.D. Admitting Physician: Lluvia Ruiz M.D. Primary Care Physician: Primary Care Physician Hillary WEATHERS PROGRESS NOTES DATE 05/28/2016 DISCUSSION Mr. Brewer is a 45-year-old, male who was seen today and chart was reviewed and case was discussed with the staff. He remains anxious, withdrawn and rather seclusive to himself. He reports persistent depression and auditory hallucinations. Meanwhile, he has been taking medications. He was tolerating him fairly well with no reported side effects. MENTAL STATUS EXAM Middle-aged female who was casually dressed with fair personal hygiene, appears to be in no acute distress or discomfort. He was awake and alert with impaired attention and concentration. His mood was anxious with congruent affect. He reports having suicidal ideation and auditory hallucinations. His insight and judgement remains significantly impaired. TREATMENT PLAN 1. We will continue him on his current treatment protocol. We will monitor his response and make further adjustments as needed. 2. We will continue to follow up. Dictated by... Prashant Huang/erica TD: 05/30/2016 02:39 JOB #: [id number] Unit #: [id number] #: [id number] Patient: GUSTABO BREWER SARAHY PROGRESS NOTES Page 1 of 1 X Lluvia Ruiz MD PROGRESS NOTE
--- NOTE | ~2016-05-27 | PN ---
Unit #: [id number] #: [id number] Patient: GUSTABO BREWER [id number] [facility] [address] [place] [address] [id number] I MR#: [id number] NAME: GUSTABO BREWER. ROOM: P264 Age: 45 Sex: M Admission Date: 05/27/2016 : 1970 Attending Physician: Lluvia Ruiz M.D. Admitting Physician: Lluvia Ruiz M.D. Primary Care Physician: Primary Care Physician Hillary WEATHERS PROGRESS NOTES DATE 05/29/2016 DISCUSSION Mr. Brewer is a 45-year-old, male who was seen today and chart was reviewed and case was discussed with the staff. He appears to be doing fairly well and was noticed to be smiling and laughing and interacting with peers and chatting and did not appear to be in any acute distress or discomfort and was not exhibiting any dysphoric symptoms. It appears that he has been developing a lot of maligning symptoms and wanting to stay in the hospital and putting it on his mother even though he is a grownup man, he has been stating that his mother wants him to be in the hospital and does not take responsibility for his own actions and behavior. MENTAL STATUS EXAM Middle-aged male who was casually dressed with fair personal hygiene, appears to be in no acute distress or discomfort. He was awake and alert on interaction with intact orientation. His mood was anxious with congruent affect. He denies any suicidal or homicidal ideation His insight and judgement remains slightly impaired. TREATMENT PLAN 1. We will continue him on his current treatment protocol. We will monitor his response and make further adjustments as needed. 2. We will continue to follow up. Dictated by... Prashant Huang/erica TD: 05/30/2016 22:34 JOB #: [id number] Unit #: [id number] #: [id number] Patient: GUSTABO BREWER PEARAEANN PROGRESS NOTES Page 1 of 1 X Lluvia Ruiz MD PROGRESS NOTE
== END 2016-05-30 13:00 | disposition home or self-care (01) | DRG 885 ==
LOC: P2S 07:15 → P2L 11:04
DX: F31.5 Bipolar disorder, current episode depressed, severe, with psychotic features (principal); R45.851 Suicidal ideations; I10 Essential (primary) hypertension; J44.9 Chronic obstructive pulmonary disease, unspecified; Z86.73 Personal history of transient ischemic attack (TIA), and cerebral infarction without residual deficits; Z88.8 Allergy status to other drugs, medicaments and biological substances

== ENCOUNTER 2016-07-26 15:03 | Inpatient (IN) | payer MEDICARE, OTHER ==
--- NOTE | ~2016-07-26 | PN ---
Unit #: [id number] #: [id number] Patient: GUSTABO BREWER [id number] [facility] [address] [place] [address] [id number] I MR#: [id number] NAME: GUSTABO BREWER. ROOM: P266 Age: 46 Sex: M Admission Date: 07/26/2016 : 1970 Attending Physician: Lluvia Ruiz M.D. Admitting Physician: Lluvia Ruiz M.D. Primary Care Physician: Primary Care Physician Hillary KINNEY NOTES DATE 07/29/2016 DISCUSSION Mr. Brewer is a 46-year-old male who was seen today and chart was reviewed and case was discussed with the staff. He has been anxious, withdrawn, depressed and rather seclusive to himself though does not appear to be invested in treatment as he does not go to the groups and just sleeps in his bed all the time and takes medicine, will eat and then sleep and does not go to therapy groups and does not participate in any treatment related activities malingering behavior. MENTAL STATUS EXAMINATION Middle-aged male who was casually dressed with fair personal hygiene and appears to be in no acute distress or discomfort. He was awake and alert with impaired attention and concentration. His mood was anxious and depressed with congruent affect. He denies any current suicidal or homicidal ideation. His insight and judgement remains slightly impaired. TREATMENT PLAN 1. Will continue on his current treatment protocol. Will monitor his response to the medications and make further adjustments as needed. 2. Will continue to follow up. Dictated by... Prashant Huang/stella TD: 07/29/2016 22:46 JOB #: [id number] Unit #: [id number] #: [id number] Patient: GUSTABO BREWER SARAHY PROGRESS NOTES Page 1 of 1 X Lluvia Ruiz MD PROGRESS NOTE
--- NOTE | ~2016-07-26 | DS ---
Unit #: [id number] #: [id number] Patient: GUSTABO BREWER [id number] [facility] [address] [place] [address] [id number] I MR#: [id number] NAME: GUSTABO BREWER. ROOM: 66 Age: 46 Sex: M Admission Date: 07/26/2016 : 1970 Discharge Date: Attending Physician: Lluvia Ruiz M.D. Primary Care Physician: Primary Care Physician No DISCHARGE SUMMARY IDENTIFYING DATA Mr. Brewer is a 46-year-old male, who is known to us from previous encounters and has been a frequent flyer to inpatient hospitalizations and once again self-referred himself back to the hospital. DISCHARGE DIAGNOSES Psychiatric: Bipolar disorder, most recent episode depressed, recurrent, moderate, without psychotic features. Medical: Diabetes mellitus, hypertension, asthma, history of transient ischemic attack. Stressors: Moderate psychosocial stressors. HISTORY OF PRESENT ILLNESS Please see initial psychiatric evaluation for details. PAST PSYCHIATRIC HISTORY Please see initial psychiatric evaluation for details. PAST MEDICAL HISTORY Please see initial psychiatric evaluation for details. HOSPITAL COURSE The [facility] and was oriented to the hospital environment. Routine p.r.n. medications were initiated, and he was started back on his home medications particularly his Seroquel and Geodon due to his persistent psychosis and being off the medication and was closely monitored. He was taking the medications regularly and was tolerating them fairly well and was able to show a decent and therapeutic response with improvement in depression and anxiety and psychosis and as such, it was decided that he will be discharged home and will continue treatment on an outpatient basis. DISCHARGE MEDICATIONS Seroquel 100 mg in the morning and 400 mg at bedtime for psychosis, and Geodon 120 mg in the evening for psychosis. DISCHARGE CONDITION Stable. PROGNOSIS Fair. Dictated by... Unit #: [id number] #: [id number] Patient: GUSTABO BREWER Lluvia Ruiz M.D. IAA/modl TD: 08/01/2016 07:13 JOB #: [id number] DISCHARGE SUMMARY Page 1 of 1 X Lluvia Ruiz MD DISCHARGE SUMMARY
--- NOTE | ~2016-07-26 | HP ---
Unit #: [id number] #: [id number] Patient: GUSTABO ZAMUDIO [id number] [place] [address] [id number] I MR#: [id number] NAME: GUSTABO ZAMUDIO. ROOM: P266 Age: 46 Sex: M Admission Date: 07/26/2016 : 1970 Attending Physician: Lluvia Ruiz M.D. Admitting Physician: Lluvia Ruiz M.D. Primary Care Physician: No Primary Care Physician HISTORY AND PHYSICAL HISTORY OF PRESENT ILLNESS Gustabo is a 46-year-old admitted to [address] [place] [address] with depression and verbalizing wanting to hurt himself. He has had numerous admissions to this facility for treatment of the same. PAST MEDICAL HISTORY 1. Long history of polysubstance abuse. 2. High blood pressure. 3. Diabetes mellitus. 4. Asthma. 5. History of TIAs. a. (By patient report) 6. History of malingering. PAST SURGICAL HISTORY 1. Cholecystectomy. 2. Bowel resection. SOCIAL HISTORY Smokes one pack per day. Drinks alcohol. Has a long history of illicit substance abuse to include cocaine and marijuana. FAMILY HISTORY Medically noncontributory. ALLERGIES Levaquin, lithium, Risperdal, Haldol. CURRENT MEDICATIONS 1. Geodon 120 mg at nighttime. 2. Symbicort 2 puffs daily. 3. Milk of Magnesia p.r.n. 4. Maalox p.r.n. 5. Tylenol p.r.n. 6. Seroquel 100 mg q.a.m., 400 mg at nighttime. 7. Catapres 0.1 mg t.i.d. 8. Zoloft 100 mg daily. 9. Norvasc 5 mg daily. 10. Aspirin 81 mg daily. 11. Zestril 10 mg daily. REVIEW OF SYSTEMS CONSTITUTIONAL: No fever or chills. HEENT: Denies any sore throat, ear pain or runny nose. Unit #: [id number] #: [id number] Patient: GUSTABO ZAMUDIO CARDIOVASCULAR: Denies chest pain, irregular heart rhythm or palpitations. CHEST: Denies shortness of breath or cough. No hemoptysis. GASTROINTESTINAL: Denies nausea, vomiting, diarrhea or chronic constipation. ENDOCRINE: Denies history of increased thirst or urination. No recent significant weight loss or gain. GENITOURINARY: Denies dysuria, frequency, or hematuria. SKIN: Denies any rashes. HEMATOLOGIC: Denies history of increased bleeding or bruising. MUSCULOSKELETAL: Denies any hot, swollen joints. No generalized muscle pain. NEUROLOGIC: Denies problems with vision or speech. No frequent, severe headaches. No numbness, tingling or weakness in any extremities. Denies loss of bladder or bowel control. PHYSICAL EXAMINATION GENERAL: Alert and well nourished. No apparent distress. VITAL SIGNS: Blood pressure 170/110, 134/84, heart rate 70, respiratory rate 16, temperature 98.6. WEIGHT: 227, 5'7". SKIN: Warm and dry without rash or lesion. HEENT: Normocephalic. TMs not viewed. Oral and nasal passages clear. Conjunctivae clear. PERRLA. EOMs intact. NECK: Supple without lymphadenopathy or thyromegaly. HEART: Regular rate and rhythm without murmur. LUNGS: Clear. ABDOMEN: Soft, nontender. : Not done. EXTREMITIES: No evidence of cyanosis, clubbing or edema. Moves all without focal deficit. NEUROLOGICAL: Grossly within normal limits. Cranial Nerves: II: Visual go are intact. III, IV AND : Extraocular movements are intact. Pupils are equal, round and reactive to light. V: Facial sensation is grossly normal. VII: Facial movements and expression are normal. VIII: Auditory acuity grossly intact. IX, X: Uvula is midline. Phonation is normal. XI: Patient shrugs shoulders and turns head normally. XII: Tongue protrudes in the midline. Sensory and Motor Function: Sensory and motor sensation is grossly normal. Motor: moves all extremities well. Coordination: Gait is normal. Deep Tendon Reflexes: Intact. ASSESSMENT Psychiatric admission. RECOMMENDATION Psychiatric: Per psychiatrist. Medical: 1. I see no contraindications to participating in facility activity. 2. Medical prognosis good. 3. Medical condition stable. Dictated by... Leola Devlin P.A.-C. Unit #: [id number] #: [id number] Patient: GUSTABO ZAMUDIO BELTRAN/melissa TD: 07/27/2016 16:20 JOB #: [id number] HISTORY AND PHYSICAL Page 1 of 1 X Leola Devlin HISTORY AND PHYSICAL
[2016-07-28 09:40] LABS: BASOPHIL# 0.1 X10e3 (0-0.3); BASOPHIL% 1.3 % (0-2.5); EOSINOPHIL# 0.3 X10e3 (0-0.7); EOSINOPHIL% 5.9 % (0.0-7.0); HEMATOCRIT 41.4 % (38.0-50.0); HEMOGLOBIN 13.5 gm/dL (13.0-16.0); LYMPHOCYTE% 40.4 % (17.0-45.0); MEAN CELL VOLUME 88.1 FL (83-96); MEAN CORPUSCULAR HEMOGLOBIN 28.7 PG (28-34); MEAN CORPUSCULAR HGB CONC 32.6 g/dL (30-36); MEAN PLATELET VOLUME 11.1 FL (6.5-11.5); MONOCYTE# 0.5 X10e3 (0-1.0); MONOCYTE% 9.8 % (3.0-12.0); NEUTROPHIL# 2.1 X10e3 (1.5-7.1); NEUTROPHIL% 42.6 % (40-75); RED CELL DISTRIBUTION WIDTH 12.8 % (11.0-15.5); WHITE BLOOD COUNT 4.9 X10e3 (4.0-10.5)
[2016-07-28 10:16] LABS: ALBUMIN SERUM 3.5 g/dL (3.5-5.0); BILIRUBIN,TOTAL 0.6 mg/dL (0.2-2.0); CALCIUM SERUM 8.6 mg/dL (8.4-10.2); GLOM FILT RATE Estimated 105.6 mL/min (>60); POTASSIUM 4.3 mmol/L (3.5-5.1)
[2016-07-28 12:12] LABS: DIFF IND NO; PLATELET COUNT 165 X10e3 (140-420)
[2016-07-28 12:28] LABS: URINE APPEARANCE CLEAR; URINE BILIRUBIN NEG (NEG); URINE BLOOD NEG (NEG); URINE COLOR YELLOW; URINE GLUCOSE NEG (NEG); URINE KETONE NEG (NEG); URINE LEUKOCYTE ESTERASE NEG (NEG); URINE NITRATE NEG (NEG); URINE PROTEIN NEG (NEG); URINE SPECIFIC GRAVITY 1.019 (1.003-1.035); URINE UROBILINOGEN 0.2 MG/DL (NEG)
[2016-07-28 12:50] LABS: AMPHETAMINE NEG (NEG); BARBITURATES NEG (NEG); BENZODIAZEPINES NEG (NEG); COCAINE NEG (NEG); MARIJUANA NEG (NEG); OPIATES NEG (NEG); TRICYCLIC ANTIDEPRESSANTS POS (NEG); U METHADONE NEG (NEG)
== END 2016-08-01 10:40 | disposition home or self-care (01) | DRG 885 ==
LOC: P2L 17:31
PROVIDERS: Psychiatry & Neurology Psychiatry
DX: F31.32 Bipolar disorder, current episode depressed, moderate (principal); E11.9 Type 2 diabetes mellitus without complications; I10 Essential (primary) hypertension; Z86.73 Personal history of transient ischemic attack (TIA), and cerebral infarction without residual deficits; F41.9 Anxiety disorder, unspecified; F29 Unspecified psychosis not due to a substance or known physiological condition; J45.909 Unspecified asthma, uncomplicated; F17.210 Nicotine dependence, cigarettes, uncomplicated
CPT/HCPCS: 80053; 80307; 81003; 82947; 85025

== ENCOUNTER 2016-09-25 16:00 | Inpatient (IN) | payer MEDICARE, OTHER ==
[~2016-09-25] VITALS: Ht 170.2 cm; Wt 106.6 kg
--- NOTE | ~2016-09-25 | PN ---
Unit #: [id number] #: [id number] Patient: GUSTABO BREWER [id number] [facility] [address] [place] [address] [id number] I MR#: [id number] NAME: GUSTABO BREWER. ROOM: P255 Age: 46 Sex: M Admission Date: 09/25/2016 : 1970 Attending Physician: Lluvia Ruiz M.D. Admitting Physician: Lluvia Ruiz M.D. Primary Care Physician: Primary Care Physician Hillary WEATHERS PROGRESS NOTES DATE 09/27/2016 DISCUSSION Mr. Gustabo Brewer is a 46-year-old male, seen on 09/27/2016. The patient interviewed, chart reviewed, and obtained information from the nursing staff. The patient continues to be seclusive, isolative, guarded, reported hearing things, having suicidal thoughts, unable to contract for safety. Vital signs, the patient refused. REVIEW OF SYSTEMS Complete review of systems unremarkable. MENTAL STATUS EXAMINATION General appearance: Patient dressed casually. Attention span and concentration, poor. Oriented in place and person. Mood and affect, labile. Speech, monotone. Thought process, concrete. The patient denied any thoughts of harming others but suicidal ideations, hallucinations. Recent and remote memory, poor. Insight and judgment, poor. DIAGNOSIS Schizoaffective disorder, bipolar type. ASSESSMENT/PLAN Advised to continue with the current medication and therapeutic protocol, and if needed consider further adjustment of medication. Dictated by... Prashant Dacosta/jesus TD: 09/28/2016 11:06 JOB #: [id number] Unit #: [id number] #: [id number] Patient: GUSTABO BREWER PROGRESS NOTES Page 1 of 1 X Chris Huizar MD PROGRESS NOTE
--- NOTE | ~2016-09-25 | PN ---
Unit #: [id number] #: [id number] Patient: GUSTABO BREWER [id number] [facility] [address] [place] [address] [id number] MR#: [id number] NAME: GUSTABO BREWER. ROOM: P255 Age: 46 Sex: M Admission Date: 09/25/2016 : 1970 Attending Physician: Lluvia Ruiz M.D. Admitting Physician: Lluvia Ruiz M.D. Primary Care Physician: Primary Care Physician Hillary WEATHERS PROGRESS NOTES DATE OF SERVICE 09/26/2016 DISCUSSION Gustabo Brewer is a 46-year-old male seen on 09/26/2016. The patient interviewed, chart reviewed. Obtained information from nursing staff. The patient compliant, cooperative. Reported paranoia, hallucinations, suicidal ideation, withdrawn, isolative, guarded. Complete Review of Systems: Unremarkable. MENTAL STATUS EXAMINATION General Appearance: The patient dressed casually. Attention span, concentration: Fair. Oriented in place and person. Mood and affect: Sad, depressed. Speech: Monotone. Thought process: [place]. The patient reported hearing voices, voices telling him to harm himself. Denied any visual hallucination, suicidal ideation. Guarded, paranoid. Recent and remote memory: Poor. Insight and judgment: Poor. DIAGNOSIS Bipolar mood disorder not otherwise specified. ASSESSMENT/PLAN Advised to continue with current medication and therapeutic protocol. If needed, consider further adjustment of medication. Dictated by... Prashant Dacosta/eloy TD: 09/28/2016 09:27 JOB #: [id number] Unit #: [id number] #: [id number] Patient: GUSTABO BREWER PEARAEANN PROGRESS NOTES Page 1 of 1 X Chris Huizar MD PROGRESS NOTE
--- NOTE | ~2016-09-25 | PN ---
Unit #: [id number] #: [id number] Patient: GUSTABO BREWER [id number] [facility] [address] [place] [address] [id number] MR#: [id number] NAME: GUSTABO BREWER. ROOM: P255 Age: 46 Sex: M Admission Date: 09/25/2016 : 1970 Attending Physician: Lluvia Ruiz M.D. Admitting Physician: Lluvia Ruiz M.D. Primary Care Physician: Primary Care Physician Hillary WEATHERS PROGRESS NOTES DATE OF SERVICE 09/28/2016 DISCUSSION Gustabo Brewer is a 46-year-old male seen on 09/28/2016. Patient interviewed, chart reviewed. Obtained information from nursing staff. Patient continues to be isolative, guarded, flat affect, withdrawn, reported still having suicidal thoughts. Patient reported swelling in his mouth, seen by the doctor yesterday. Complete review of systems unremarkable. MENTAL STATUS EXAMINATION General appearance, patient dressed casually. Attention span and concentration fair. Oriented to place and person. Mood and affect sad, dysphoric. Flat affect, withdrawn, isolative, guarded, paranoid, suicidal ideation. Recent and remote memory poor. Insight and judgement poor. DIAGNOSES Schizoaffective disorder bipolar type. ASSESSMENT/PLAN Advise to continue with current medication and therapeutic protocol. Patient was advised amoxicillin yesterday 500 mg four times a day. If needed consider further adjustment of medication. Dictated by... Prashant Dacosta/erica TD: 09/29/2016 04:58 JOB #: [id number] Unit #: [id number] #: [id number] Patient: GUSTABO BREWER PEARAEANN PROGRESS NOTES Page 1 of 1 X Chris Huizar MD PROGRESS NOTE
--- NOTE | ~2016-09-25 | PA ---
Unit #: [id number] #: [id number] Patient: GUSTABO BREWER [id number] [facility]ECT[facility] [address] [place] [address] [id number] MR#: [id number] NAME: GUSTABO BREWER. ROOM: P255 Age: 46 Sex: M Admission Date: 09/25/2016 : 1970 Date of Assessment: Attending Physician: Lluvia Ruiz M.D. Admitting Physician: Lluvia Ruiz M.D. Primary Care Physician: Primary Care Physician No PSYCHIATRIC ASSESSMENT INFORMANTS The patient reliability, fair informant and chart reliability, good. CHIEF COMPLAINT Depression and suicidal ideation. HISTORY OF PRESENT ILLNESS Mr. Gustabo Brewer is a 46-year-old male, who has a history of multiple admissions in the past, last admission on 07/26/2016, presented with depression with suicidal ideation. The patient reported that he was at [employer], presented with suicidal ideation with a plan to play in traffic. The patient reported command hallucination to kill himself. The patient denied any substance abuse. Reports being clean and sober for months. The patient denied any homicidal ideation. Alert and oriented. Needing inpatient admission at this time for psychiatric stabilization. PAST PSYCHIATRIC HISTORY Remarkable for history of previous admission at [facility] [place]. Multiple admissions, last admitted on 05/27/2016. History of receiving ECT treatment also in the past. FAMILY HISTORY AND SOCIAL HISTORY The patient has poor support system. No history of abuse. No history of any legal problem. MEDICAL HISTORY Remarkable for hypertension, history of stroke, and COPD. ALLERGIES Depakote, Levaquin, lithium, Risperdal, buterophenon, and Haldol. MEDICATION HISTORY The patient is currently on amoxicillin, Zestril, Norvasc, Seroquel, and Geodon. SUBSTANCE ABUSE HISTORY The patient denied any use of any drugs or alcohol, but in the past history of marijuana, age of onset 15; crack cocaine, age of onset 26; amphetamine, age of onset 16; and benzodiazepine, age of onset 18. REVIEW OF SYSTEMS HEENT: Eyes, clear. Ears, nose, mouth, and throat; clear. CARDIOVASCULAR: Unremarkable. Unit #: [id number] #: [id number] Patient: GUSTABO BREWRE RESPIRATORY: Unremarkable. GI: Unremarkable. : Unremarkable. SKIN: Unremarkable. LYMPH NODE: Unremarkable. NEUROLOGIC: Unremarkable. ENDOCRINE: Unremarkable. HEMATOLOGIC: Unremarkable. ALLERGIC/IMMUNOLOGIC: Unremarkable. MUSCULOSKELETAL: Muscle strength and tone, no atrophy or abnormal movement. Gait normal. MENTAL STATUS EXAMINATION CONSTITUTIONAL: Measurement of vital signs; temperature 97.6, heart rate 75, respiratory rate 18, oxygen saturation 98%, and blood pressure 149/108. Height 5 feet 7 inches and weight 235 pounds. GENERAL APPEARANCE: The patient dressed casually. No facial deformity noted. MUSCULOSKELETAL: Please see above. PSYCHIATRIC EXAMINATION Description of speech; regular rate, normal volume, and normal articulation. Description of thought process, goal directed. Description of association, intact. Description of abnormal psychotic thinking; the patient denied any hallucination, but reported suicidal ideation and at times hallucination, guarded, paranoid, and withdrawn. Denied any homicidal ideation. Description of the patient's judgment: Concerning everyday activity, poor. Social situation, poor. Concerning psychiatric condition, poor. Complete mental status examination; oriented in time, place, and person. Recent and remote memory, fair. Attention span and concentration, fair. Language, able to name object and repeat phrases. Fund of knowledge, aware of current event and passive vocabulary intact. Mood and affect, sad and dysphoric. Insight and judgment, fair to poor. ASSETS AND LABILITY Assets, the patient is articulate and able to take care of his ADL. Liability, history of depression and multiple treatment and failure. ADMITTING DIAGNOSES Psychiatric: Bipolar mood disorder, recurrent, severe, depressed, F31.9. Secondary diagnosis: Deferred. Medical diagnoses: History of chronic obstructive pulmonary disease and hypertension. Stressors: Psychosocial stressors. PSYCHIATRIC PLAN AND TREATMENT GOAL AND DISCHARGE PLAN 1. Advised to admit the patient on the inpatient unit. Provide safe, supportive, and structured environment. 2. Ordered labs; CBC, CMP, UA, and UDS. 3. Precaution for aggression, self-harm, and psychosis. 4. Advised to resume home medication. If needed, consider further adjustment of medication. Treatment goal to attain euthymic mood, gain insight into his problem, and learn coping skills. Unit #: [id number] #: [id number] Patient: GUSTABO BREWER DISCHARGE PLAN Plan to stabilize the patient and consider followup in outpatient program. ESTIMATED LENGTH OF STAY 5 to 7 days. Dictated by... Prashant Dacosta/teodora TD: 09/27/2016 16:28 JOB #: [id number] PSYCHIATRIC ASSESSMENT Page 1 of 1 X Chris Huizar MD PSYCHIATRIC ASSESSMENT
--- NOTE | ~2016-09-25 | HP ---
Unit #: [id number] #: [id number] Patient: GUSTABO ZAMDUIO [id number] [place] [address] [id number] I MR#: [id number] NAME: GUSTABO ZAMUDIO. ROOM: P255 Age: 46 Sex: M Admission Date: 09/25/2016 : 1970 Attending Physician: Lluvia Ruiz M.D. Admitting Physician: Lluvia Ruiz M.D. Primary Care Physician: Primary Care Physician No HISTORY AND PHYSICAL HISTORY OF PRESENT ILLNESS Gustabo is a 46 year old admitted to [address] [place] [address] with depression and verbalizing wanting to hurt himself. He has had numerous admissions to this facility for the same. PAST MEDICAL HISTORY 1. Long history of polysubstance abuse. He denies anything currently. 2. High blood pressure. 3. Diabetes mellitus. 4. Asthma. 5. A history of TIAs by patient's report. 6. History of malingering. PAST SURGICAL HISTORY 1. Cholecystectomy. 2. Bowel resection. ALLERGIES Levaquin, lithium, Risperdal, Haldol. SOCIAL HISTORY Smokes one pack per day. Drinks alcohol. Has a history of illicit substance abuse but denies anything currently. FAMILY HISTORY Medically noncontributory. REVIEW OF SYSTEMS CONSTITUTIONAL: No fever or chills. HEENT: He does report pain in his left lower jaw and swelling over the past 48 to 72 hours. He thinks a tooth has broken off and he has not seen a dentist. CARDIOVASCULAR: Denies chest pain, irregular heart rhythm or palpitations. CHEST: Denies shortness of breath or cough. No hemoptysis. GASTROINTESTINAL: Denies nausea, vomiting, diarrhea or chronic constipation. ENDOCRINE: Denies history of increased thirst or urination. No recent significant weight loss or gain. GENITOURINARY: Denies dysuria, frequency, or hematuria. SKIN: Denies any rashes. HEMATOLOGIC: Denies history of increased bleeding or bruising. MUSCULOSKELETAL: Denies any hot, swollen joints. No generalized muscle Unit #: [id number] #: [id number] Patient: GUSTABO ZAMUDIO pain. NEUROLOGIC: Denies problems with vision or speech. No frequent, severe headaches. No numbness, tingling or weakness in any extremities. Denies loss of bladder or bowel control. CURRENT MEDICATIONS 1. Amoxicillin 500 mg q.i.d. 2. Hurricane gel q 2 hours p.r.n. 3. Seroquel 100 mg daily 4. Motrin 600 mg q.i.d. x 3 days 5. Milk of Magnesia p.r.n. 6. Maalox p.r.n. 7. Tylenol extra strength two tabs p.o. q.i.d. times three days. 8. Geodon 120 mg q.h.s. 9. Seroquel 400 mg q.h.s. PHYSICAL EXAMINATION GENERAL: Alert, obese, in no apparent distress. VITAL SIGNS: Blood pressure 150/100, heart rate 80, respirations 16, temperature 98.6. WEIGHT: 235 pounds. HEIGHT: 5'7". SKIN: Warm and dry without rash or lesion. HEENT: Significant swelling along his left lower jaw line. No abscess is noted. There appears to be one tooth missing. The tooth next to that appears to have broken off. NECK: Supple without lymphadenopathy or thyromegaly. HEART: Regular rate and rhythm without murmur. LUNGS: Clear. ABDOMEN: Soft, nontender. : Not done. EXTREMITIES: No evidence of cyanosis, clubbing or edema. Moves all extremities without focal deficit. NEUROLOGICAL: Grossly within normal limits. Cranial Nerves: II: Visual go are intact. III, IV AND : Extraocular movements are intact. Pupils are equal, round and reactive to light. V: Facial sensation is grossly normal. VII: Facial movements and expression are normal. VIII: Auditory acuity grossly intact. IX, X: Uvula is midline. Phonation is normal. XI: Patient shrugs shoulders and turns head normally. XII: Tongue protrudes in the midline. Sensory and Motor Function: Sensory and motor sensation is grossly normal. Motor: moves all extremities well. Coordination: Gait is normal. Deep Tendon Reflexes: Intact. IMPRESSION 1. Psychiatric admission. 2. High blood pressure, not controlled on admission. The patient is admitted on no blood pressure medication. 3. Left lower jaw swelling. RECOMMENDATIONS PSYCHIATRIC: Per psychiatrist. MEDICAL: 1. I see no contraindications to participating in facility's activities. 2. Continue amoxicillin, Tylenol and Motrin. 3. Identify home blood pressure medication and resume. Unit #: [id number] #: [id number] Patient: GUSTABO ZAMUDIO MEDICAL PROGNOSIS Good. MEDICAL CONDITION Stable. Dictated by... Leola Devlin P.A.-C. for Prashant Corral/erica TD: 09/27/2016 04:11 JOB #: [id number] HISTORY AND PHYSICAL Page 1 of 1 X Leola Devlin X HISTORY AND PHYSICAL
--- NOTE | ~2016-09-25 | CO ---
Unit #: [id number] #: [id number] Patient: GUSTABO ZAMUDIO [id number] [place] [address] [id number] I MR#: [id number] NAME: GUSTABO ZAMUDIO. ROOM: P254 Age: 46 Sex: M Admission Date: 09/25/2016 : 1970 Attending Physician: Lluvia Ruiz M.D. Primary Care Physician: Primary Care Physician No Consultation Date: 09/26/2016 CONSULTATION REPORT SUBJECTIVE Gustabo is a 46-year-old with a history of high blood pressure. We have been asked to review his medications and assess his blood pressures. We have also been asked to see him about a history of blood clots. He has no history of DVTs or PEs. OBJECTIVE GENERAL: Alert, well nourished, in no apparent distress. VITAL SIGNS: Blood pressure 170/110, 184/104, 150/108; heart rate 80, 77, 82. HEART: Rate and rhythm is regular. CHEST: Lungs clear. ABDOMEN: Soft and nontender. EXTREMITIES: No edema. HOME MEDICATIONS He has been Tenormin and hydrochlorothiazide, but has been noncompliant with this for many, many months. ASSESSMENT High blood pressure, not controlled. The patient is noncompliant with his medications. PLAN Norvasc 5 mg one p.o. daily. He knows to follow up with his PCP. Dictated by... Leola Devlin P.A.-C. for Prashant Corral/teodora TD: 10/05/2016 23:21 JOB #: [id number] Unit #: [id number] #: [id number] Patient: GUSTABO ZAMUDIO CONSULTATION REPORT Page 1 of 1 X Leola Devlin CONSULTATION REPORT
--- NOTE | ~2016-09-25 | DS ---
Unit #: [id number] #: [id number] Patient: GUSTABO BREWER [id number] [place] [address] [id number] I MR#: [id number] NAME: GUSTABO BREWER. ROOM: P255 Age: 46 Sex: M Admission Date: 09/25/2016 : 1970 Discharge Date: 09/30/2016 Attending Physician: Lluvia Ruiz M.D. Primary Care Physician: Primary Care Physician No DISCHARGE SUMMARY IDENTIFICATION DATA Mr. Brewer is a 46-year-old male who is known to us from previous encounter and was self-referred to the hospital. DISCHARGE DIAGNOSES PSYCHIATRIC: Bipolar disorder, most recent episode, depressed, recurrent, moderate, without psychosis. MEDICAL: Hypertension. Chronic obstructive pulmonary disease. STRESSORS: Moderate psychosocial stressors. HISTORY OF PRESENT ILLNESS Same as in initial psychiatric evaluation. PAST PSYCHIATRIC HISTORY Same as in initial psychiatric evaluation. PAST MEDICAL HISTORY Same as in initial psychiatric evaluation. HOSPITAL COURSE The patient was admitted to the adult psychiatric unit at [facility] and was oriented to the hospital environment. Routine p.r.n. medications were initiated, and he was started back on his home medications, and medications were maintained. He was known as a frequent flyer with malingering behavior. Once medications were regulated, it was decided that he will be discharged. Once again, recommendation will be made for the patient to continue treatment on outpatient basis. DISCHARGE MEDICATIONS 1. Seroquel 100 mg in the morning and 400 mg at bedtime for bipolar. 2. Geodon 120 mg in the evening for bipolar. CONDITION AT DISCHARGE Stable. PROGNOSIS Fair. Dictated by... Lluvia Ruiz M.D. Unit #: [id number] #: [id number] Patient: GUSTABO BREWER KARI/bzg TD: 09/30/2016 10:55 JOB #: [id number] DISCHARGE SUMMARY Page 1 of 1 X Lluvia Ruiz MD DISCHARGE SUMMARY
--- NOTE | ~2016-09-25 | DS ---
Unit #: [id number] #: [id number] Patient: GUSTABO BREWER [id number] [facility] [address] [place] [address] [id number] I MR#: [id number] NAME: GUSTABO BREWER. ROOM: P254 Age: 46 Sex: M Admission Date: 09/25/2016 : 1970 Discharge Date: 10/01/2016 Attending Physician: Lluvia Ruiz M.D. Primary Care Physician: Primary Care Physician No DISCHARGE SUMMARY JOB NOTE: ADDENDUM ADDENDUM Mr. Brewer was scheduled to be discharged yesterday on 09/30, however, social group worker were trying to place him into a jail house which required a TB skin test, which has been initiated, but was not ready to be read until 10/01 and her long-term placement stated they would not take him until he has negative TB skin test, which was read on 10/01 and was negative and as such, it was decided that he will be transferred to his 30 day long-term rehab program. DISCHARGE CONDITION Stable. PROGNOSIS Fair. Dictated by... Prashant Huang/teodroa TD: 10/02/2016 12:13 JOB #: [id number] DISCHARGE SUMMARY Page 1 of 1 X Lluvia Ruiz MD X DISCHARGE SUMMARY
--- NOTE | ~2016-09-25 | PN ---
Unit #: [id number] #: [id number] Patient: GUSTABO BREWER [id number] [facility] [address] [place] [address] [id number] I MR#: [id number] NAME: GUSTABO BREWER. ROOM: P255 Age: 46 Sex: M Admission Date: 09/25/2016 : 1970 Attending Physician: Lluvia Ruiz M.D. Admitting Physician: Lluvia Ruiz M.D. Primary Care Physician: Primary Care Physician Hillary WEATHERS PROGRESS NOTES DATE 09/29/2016 DISCUSSION Gustabo Brewer is a 46-year-old male, seen on 09/29/2016. The patient interviewed, chart reviewed, and obtained information from the nursing staff. The patient continues to report feeling suicidal, withdrawn, isolative, guarded but reports that his face is better. The patient has an abscess currently on antibiotic. REVIEW OF SYSTEMS Complete review of systems unremarkable. MENTAL STATUS EXAMINATION General appearance: Patient dressed casually, withdrawn, isolative. Attention span and concentration, fair. Oriented in place and person. Mood and affect, sad and depressed. Speech, monotone. Thought process, concrete. The patient denied any thoughts of harming others but having suicidal ideation, unable to contract for safety. Recent and remote memory, poor. Insight and judgment, poor. DIAGNOSIS Schizoaffective disorder, bipolar type. ASSESSMENT/PLAN Advised to continue with the current medication and therapeutic protocol, and if needed consider further adjustment of medication. Dictated by... Prashant Dacosta/jesus TD: 09/30/2016 07:19 JOB #: [id number] Unit #: [id number] #: [id number] Patient: GUSTABO BREWER [facility] PROGRESS NOTES Page 1 of 1 X Chris Huizar MD PROGRESS NOTE
[2016-09-30 09:39] LABS: URINE APPEARANCE CLEAR; URINE BILIRUBIN NEG (NEG); URINE BLOOD NEG (NEG); URINE COLOR YELLOW; URINE GLUCOSE NEG (NEG); URINE KETONE NEG (NEG); URINE LEUKOCYTE ESTERASE NEG (NEG); URINE NITRATE NEG (NEG); URINE PROTEIN NEG (NEG); URINE SPECIFIC GRAVITY 1.014 (1.003-1.035); URINE UROBILINOGEN 0.2 MG/DL (NEG)
[2016-09-30 09:46] LABS: ALBUMIN SERUM 3.9 g/dL (3.5-5.0); BILIRUBIN,TOTAL 0.4 mg/dL (0.2-2.0); CALCIUM SERUM 9.2 mg/dL (8.4-10.2); GLOM FILT RATE Estimated 105.6 mL/min (>60); POTASSIUM 4.4 mmol/L (3.5-5.1); PROTEIN TOTAL SERUM 7.1 g/dL (6.0-8.3)
[2016-09-30 09:47] LABS: BASOPHIL# 0.1 X10e3 (0-0.3); EOSINOPHIL# 0.2 X10e3 (0-0.7); EOSINOPHIL% 2.8 % (0.0-7.0); HEMATOCRIT 40.8 % (38.0-50.0); HEMOGLOBIN 14.1 gm/dL (13.0-16.0); LYMPHOCYTE# 1.9 X10e3 (1.0-3.5); LYMPHOCYTE% 26.3 % (17.0-45.0); MEAN CORPUSCULAR HEMOGLOBIN 29.3 PG (28-34); MEAN CORPUSCULAR HGB CONC 34.5 g/dL (30-36); MEAN PLATELET VOLUME 10.3 FL (6.5-11.5); MONOCYTE# 0.7 X10e3 (0-1.0); MONOCYTE% 9.6 % (3.0-12.0); NEUTROPHIL# 4.2 X10e3 (1.5-7.1); NEUTROPHIL% 60.3 % (40-75); PLATELET COUNT 251 X10e3 (140-420); RED CELL DISTRIBUTION WIDTH 13.3 % (11.0-15.5)
[2016-09-30 09:59] LABS: DIFF IND NO
[2016-09-30 10:33] LABS: AMPHETAMINE NEG (NEG); BARBITURATES NEG (NEG); BENZODIAZEPINES NEG (NEG); COCAINE NEG (NEG); MARIJUANA NEG (NEG); OPIATES NEG (NEG); TRICYCLIC ANTIDEPRESSANTS NEG (NEG); U METHADONE NEG (NEG)
== END 2016-10-01 14:00 | disposition home or self-care (01) | DRG 885 ==
LOC: P2L 22:40
PROVIDERS: Psychiatry & Neurology Psychiatry
DX: F31.4 Bipolar disorder, current episode depressed, severe, without psychotic features (principal); R45.851 Suicidal ideations; I10 Essential (primary) hypertension; J44.9 Chronic obstructive pulmonary disease, unspecified; Z90.49 Acquired absence of other specified parts of digestive tract; Z88.8 Allergy status to other drugs, medicaments and biological substances; F17.210 Nicotine dependence, cigarettes, uncomplicated; R22.9 Localized swelling, mass and lump, unspecified
CPT/HCPCS: 80053; 80307; 81003; 85025; J1040

== ENCOUNTER 2016-10-18 20:46 | Inpatient (IN) | payer MEDICARE, OTHER ==
[~2016-10-18] VITALS: Ht 170.2 cm; Wt 105.7 kg
--- NOTE | ~2016-10-18 | HP ---
Unit #: [id number] #: [id number] Patient: GUSTABO ZAMUDIO [id number] [place] [address] [id number] I MR#: [id number] NAME: GUSTABO ZAMUDIO. ROOM: P202 Age: 46 Sex: M Admission Date: 10/18/2016 : 1970 Attending Physician: Lluvia Ruiz M.D. Admitting Physician: Lluvia Ruiz M.D. Primary Care Physician: Primary Care Physician No HISTORY AND PHYSICAL Gustabo is a 46 year old admitted to [address] [place] [address] with depression verbalizing wanting to hurt himself. He was recently discharged from this facility after treatment for the same. Patient was seen and H and P dated 09/26/16 was reviewed. This is current. No changes. Please see H and P dated 09/26/16. Dictated by... Leola Devlin PMarieAFaustino. for Prashant Corral/stella TD: 10/19/2016 17:06 JOB #: [id number] HISTORY AND PHYSICAL Page 1 of 1 X Leola Devlin HISTORY AND PHYSICAL
--- NOTE | ~2016-10-18 | TN ---
Unit #: [id number] #: [id number] Patient: GUSTABO BREWER [id number] [facility] [address] [place] [address] [id number] I MR#: [id number] NAME: GUSTABO BREWER. ROOM: P202 Age: 46 Sex: M Admission Date: 10/18/2016 : 1970 Discharge Date: 10/19/2016 Attending Physician: Lluvia Ruiz M.D. Primary Care Physician: Primary Care Physician No LOC TRANSFER NOTE IDENTIFYING DATA Mr. Brewer is a 46-year-old, , disabled, male, who is a resident of [place], [place], and was recently discharged from my care and once again self-referred himself back to the hospital. CHIEF COMPLAINT "I'm feeling depressed and suicidal." HISTORY OF PRESENT ILLNESS Mr. Brewer is a 46-year-old male with malingering disorder who has been a frequent flyer and habitual offender to inpatient hospitalization and never follows up with any treatment recommendations outside of the hospital. When he comes to the hospital, he is usually interested in eating and sleeping. He does not participate in any treatment related activities and once again, he left the hospital. He was told that he needs to come to the hospital as inpatient hospitalization has not been beneficial and he has had numerous and countless inpatient hospitalizations, however, he once again did not follow up with any treatment recommendation and did not even come to the outpatient treatment program and now presented to the hospital stating that he found out that his girlfriend has sole custody of their son, at least temporarily that he went to an AA meeting because he was feeling depressed because he has had custody of his son and reports that he is feeling suicidal with a plan to walk into traffic and he repeatedly comes to the hospital, making remarks that he is either having auditory hallucinations or he is having suicidal ideations, or at times he is having both, he has never attempted suicide and never actually engaged in self-harming behavior. He still endorses those feelings upon presentation, and refusing to contract for safety and then also stated that he is hearing voices telling him to play in traffic and he has been off his medications that he needs to get back on them that he last took his medicine 4 days ago, however, this whole presentation behavior has been typical of all of his presentation before and he has been exhibiting a lot of malingering behavior and inpatient hospitalization is not being to be beneficial; however, for observation purposes, the patient was admitted to the unit overnight. SUBSTANCE ABUSE HISTORY The patient has a history of cannabis, cocaine, amphetamines, benzodiazepine and opioid abuse in the past, but denies any current ongoing substance abuse issues. PAST PSYCHIATRIC HISTORY The patient has had a history of multiple inpatient psychiatric Unit #: [id number] #: [id number] Patient: GUSTABO BREWER hospitalizations at [facility] as well as multiple hospitalizations at [facility], and several other facilities to an extent that most of the facilities do not even take him back anymore because of his very well-known presentation. He refuses to follow up with any treatment outside of the hospital and once again, does not appear to be active in any treatment program outside of the hospital. PAST MEDICAL HISTORY COPD, hypertension, history of cerebrovascular accident. ALLERGIES Levaquin, Haldol, lithium, Risperdal, and Depakote. PERSONAL AND SOCIAL HISTORY A 46-year-old male, who reports that he is single, unemployed, and disabled, and has been living by himself and reports poor social support system. MENTAL STATUS EXAMINATION Middle-aged male, who was casually dressed with fair personal hygiene, appears to be in no acute distress or discomfort. He was awake and alert on interaction with intact orientation to time, place, and person. His mood was anxious and depressed with a congruent affect. His speech was slow and restricted in content. His thought processes were disorganized with some looseness of associations and suicidal ideations. His insight and judgment remain significantly impaired. DIAGNOSTIC IMPRESSION Psychiatric: Major depressive disorder, recurrent, moderate, with psychosis; malingering disorder. Medical: Hypertension, history of cerebrovascular disease, chronic obstructive pulmonary disease. Stressors: Moderate psychosocial stressors. TREATMENT PLAN 1. The patient has presented with a history of mood disorder and psychosis; however, he has significant malingering disorder and we will recommend inpatient hospitalization been not offered as it has never been beneficial and ends up being as a reward behavior and boundary setting will be done and the patient will be recommended to follow up with his outpatient psychiatrist through local [facility]. DISCHARGE MEDICATIONS Seroquel 400 mg at bedtime for psychosis, Geodon 120 mg at bedtime and 100 mg in the morning for psychosis, Norvasc 5 mg a day for hypertension, Zestril 10 mg a day for hypertension, Trimox 500 mg q.i.d. for respiratory infection. DISCHARGE CONDITION Stable. PROGNOSIS Guarded. Dictated by... Unit #: [id number] #: [id number] Patient: GUSTABO BREWER M.D. IAA/teodora TD: 10/19/2016 23:09 JOB #: [id number] LOC TRANSFER NOTE Page 1 of 1 X Lluvia Ruiz MD X LOC TRANSFER NOTE
== END 2016-10-19 13:50 | DRG 885 ==
LOC: P2S 22:28
DX: F33.1 Major depressive disorder, recurrent, moderate (principal); I10 Essential (primary) hypertension; Z76.5 Malingerer [conscious simulation]; J44.9 Chronic obstructive pulmonary disease, unspecified; Z86.73 Personal history of transient ischemic attack (TIA), and cerebral infarction without residual deficits